=== PATIENT | male | born 1940 | race Two or more races ===

== ENCOUNTER 2021-01-22 01:56 | Inpatient (IN) | payer SELFPAY ==
[~2021-01-22] VITALS: Ht 170.2 cm; Wt 83.7 kg
[2021-01-22] VITALS (21 sets, daily range): BP systolic 109–148; BP diastolic 67–94
--- NOTE | 2021-01-22 02:00 | PHYS DOC ---
Past Medical History Past Medical History: CVA, Diabetes-Type II, High Cholesterol, Hypertension, Stroke Past Medical History Subdural hemorrhage Syncope Memory loss Falls Smoking Status: Never Smoker Alcohol Use: None Drug Use: None General Adult EDM: Chief Complaint: ABDOMINAL PAIN HPI: HPI: Patient is a 80 year old male who presents via EMS from home with report of epigastric and periumbilical abdominal pain which began 2 nights ago. He reports pain usually occurs after eating. The pain is nonradiating. He reports one episode of nausea without vomiting. He denies anorexia. He denies chest pain or dyspnea. He denies lower abdominal pain. He denies urinary symptoms. He denies constipation or diarrhea. He denies fevers or chills. No previous abdominal surgeries. He lives here with his daughter, but he normally resides in [facility]. He speaks no Grenadian. He denies any previous similar symptoms. He reports that his pain is actually improved today, and shortly after arrival, he reports that his pain is resolved. He continues to adamantly deny any chest pain. Review of Systems: Review of Systems: Constitutional: Denies fever or chills. [] HENT: Denies nasal congestion or sore throat. [] Respiratory: Denies cough or shortness of breath. [] Cardiovascular: Denies chest pain or edema. [] GI: Reports abdominal pain, 1 episodes of nausea without vomiting, no current nausea. Denies constipation or diarrhea. : Denies urinary symptoms. Musculoskeletal: Denies back pain or joint pain. [] Integument: Denies rash. [] Neurologic: Denies headache, focal weakness or sensory changes. [] Psychiatric: Denies depression or anxiety. [] Heart Score: C/O Chest Pain: No Risk Factors: Risk Factors: DM, Current or recent (<one month) smoker, HTN, HLP, family history of CAD, obesity. Risk Scores: Score 0 - 3: 2.5% MACE over next 6 weeks - Discharge Home Score 4 - 6: 20.3% MACE over next 6 weeks - Admit for Clinical Observation Score 7 - 10: 72.7% MACE over next 6 weeks - Early Invasive Strategies Physical Exam: PE: Constitutional: Well developed, well nourished, no acute distress, non-toxic appearance. [] HENT: Normocephalic, atraumatic, oropharynx is patent and clear. Mucous membranes are moist. Eyes: Sclera are clear and anicteric. Neck: Normal range of motion, no tenderness, supple, no stridor. [] Cardiovascular:Heart rate regular rhythm, +2 radial and +2 dorsalis pedis pulses bilaterally. Lungs & Thorax: Bilateral breath sounds clear to auscultation [] Abdomen: Abdomen is obese, soft, nondistended, normal bowel sounds, minimal epigastric tenderness, no guarding, no rebound tenderness. No lower abdominal tenderness. No palpable masses organomegaly. No CVA tenderness. No flank or abdominal ecchymoses. No audible bruit, no pulsatile mass appreciated. Skin: Warm, dry, no erythema, no rash. No jaundice. Back: No tenderness, no CVA tenderness. [] Extremities: No tenderness, no cyanosis, no clubbing, ROM intact, no edema. [] Neurologic: He is awake, alert, conversant, moves all 4 extremities equally, no facial asymmetry, speech is fluent. Psychologic: Affect is flat. He is cooperative. EKG: EKG: EKG is interpreted at 27 Rhythm is sinus Rate is [address] elevation in the inferior leads, 2, 3, aVF. There is also some ST elevation in V3 and V4 and V5 and less than 1 V6. Q waves present in V1. Incomplete left bundle branch block. Occasional PVCs. Radiology/Procedures: Radiology/Procedures: IMAGING REPORT Signed PATIENT: ADRIANNA BHAKTA ACCOUNT: [id number] : 1940 LOCATION: ER AGE: 80 SEX: M EXAM STATUS: REG ER ORD. PHYSICIAN: NEVA GARRIDO DO REASON: abdominal pain PROCEDURE: CT ABDOMEN PELVIS WO CONTRAST Examination: CT of the abdomen pelvis without contrast HISTORY: History of abdominal pain COMPARISON: None TECHNIQUE: Axial CT images of abdomen pelvis were performed without contrast. Coronal and sagittal reformats are performed Exposure: One or more of the following individualized dose reduction techniques were utilized for this examination: 1. Automated exposure control 2. Adjustment of the mA and/or kV according to patient size 3. Use of iterative reconstruction technique FINDINGS: Mild bibasilar lung atelectasis. No evidence of free air identified in the abdomen. The evaluation of the solid organs is limited due to lack of IV contrast. The evaluation of bowel is limited due to lack of oral contrast. The visualized noncontrasted liver, spleen, adrenals grossly appears unremarkable. The stomach is mildly distended. The visualized pancreas grossly appears unremarkable. The gallbladder is mildly distended The small bowel is nondilated. Feces and gas throughout the colon. Minimal fat stranding identified about the kidneys. Scattered diverticulosis colon. Urinary bladder is mildly distended. Moderate enlarged prostate gland. Moderate degenerative changes thoracal lumbar spine. IMPRESSION: 1. Minimal fat stranding identified about the kidneys could be due to medical renal disease or pyelonephritis. Correlate with lab values. 2. Moderate enlarged prostate gland. Electronically signed by: Jaycob Masters MD (01/22/2021 4:14 AM) [id number] DICTATED and SIGNED BY: JAYCOB MASTERS MD DATE: 01/22/21 [id number] 0 Course & Med Decision Making: Course & Med Decision Making Pertinent Labs and Imaging studies reviewed. (See chart for details) The patient had one episode of nausea, but this resolved within seconds. No vomiting. His pain is resolved. He has been sleeping, soundly, resting comfortably throughout his ED stay. EKG is markedly abnormal and does demonstrate STEMI pattern. I discussed this with on-call STEMI aluminum welder, Dr. Mcginnis. He reviewed the EKG, and I discussed the clinical findings and the patient's symptomatology with him. He agrees to treat the patient medically, and he will see him later this morning and will discuss cardiac catheterization later possibly. The patient is denying pain. He continues to deny chest pain. He is resting comfortably. His vital signs are stable. I have discussed all of the findings, differential diagnosis and plan of care with the patient as well as with his family. I discussed the plan for admission to the hospital. P.o. aspirin and heparin drip are initiated. The patient will be admitted to the hospitalist service, accepted by Dr. Saba. Jenna Disclaimer: Jenna Disclaimer: This electronic medical record was generated, in whole or in part, using a voice recognition dictation system. Departure Departure Impression: Primary Impression: ACS (acute coronary syndrome) Disposition: ADMITTED INPATIENT Admitting Physician: AUTUMN Condition: GUARDED HEMA,NEVA Eli DO Jan 22, 2021 02:00
[2021-01-22] MEDS ORDERED: fentaNYL PF VIAL 100 MCG/2 ML VIAL IVP ONE (02:15)
[2021-01-22] MEDS ORDERED: IV NORMAL SALINE 1000ML BAG 1,000 ML IV ONE ×2 (02:15→04:30)
[2021-01-22 02:24] LABS: BASO # 0.1 x10^3/uL (0.0-0.2); BASO % 1 % (0-3); EOS # 0.3 x10^3/uL (0.0-0.7); EOS % 2 % (0-3); HEMATOCRIT 38.1 % (39.0-53.0); HEMOGLOBIN 12.6 g/dL (13.0-17.5); LYMPH # 5.1 x10^3/uL (1.0-4.8); LYMPH % 39 % (24-48); MEAN CORPUSCULAR HEMOGLOBIN 28 pg (25-35); MEAN CORPUSCULAR HGB CONC 33 g/dL (31-37); MEAN CORPUSCULAR VOLUME 85 fL (79-100); MONO # 1.2 x10^3/uL (0.0-1.1); MONO % 9 % (0-9); NEUT # 6.3 x10^3/uL (1.8-7.7); NEUT % 48 % (31-73); PLATELET COUNT 365 x10^3/uL (140-400); RED BLOOD COUNT 4.49 x10^6/uL (4.30-5.70); RED CELL DISTRIBUTION WIDTH 13.1 % (11.5-14.5); WHITE BLOOD COUNT 13.1 x10^3/uL (4.0-11.0)
[2021-01-22 02:45] LABS: ALBUMIN 2.9 g/dL (3.4-5.0); ALBUMIN/GLOBULIN RATIO 0.7 (1.0-1.7); CALCIUM 8.1 mg/dL (8.5-10.1); CREATININE 1.7 mg/dL (0.7-1.3); GFR 39.2; POTASSIUM 3.7 mmol/L (3.5-5.1); TOTAL BILIRUBIN 0.2 mg/dL (0.2-1.0); TOTAL PROTEIN 7.3 g/dL (6.4-8.2)
--- NOTE | 2021-01-22 02:52 | EKG ---
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
[2021-01-22] MEDS ORDERED: ONDANSETRON PF 4 MG/2 ML VIAL. IVP ONE (03:15)
[2021-01-22] MEDS ORDERED: ASPIRIN CHEWABLE 81 MG TABLET. PO ONE ×2 (03:30→12:45)
[2021-01-22] MEDS: HEPARIN 25,000UTS/250ML PREMIX 250 ML IV PRN (04:08)
--- NOTE | 2021-01-22 04:17 | RAD ---
Examination: CT of the abdomen pelvis without contrast HISTORY: History of abdominal pain COMPARISON: None TECHNIQUE: Axial CT images of abdomen pelvis were performed without contrast. Coronal and sagittal re formats are performed Exposure: One or more of the following individualized dose reduction techniques were utilized for thi s examination: 1. Automated exposure control 2. Adjustment of the mA and/or kV according to patient size 3. Use of iterative reconstruction technique FINDINGS: Mild bibasilar lung atelectasis. No evidence of free air identified in the abdomen. The evaluation of the solid organs is limited due to lack of IV contrast. The evaluation of bowel is limited due to lack of oral contrast. The visualized noncontrasted liver, spleen, adrenals grossly ap pears unremarkable. The stomach is mildly distended. The visualized pancreas grossly appears unremark able. The gallbladder is mildly distended The small bowel is nondilated. Feces and gas throughout the colon. Minimal fat stranding identified a bout the kidneys. Scattered diverticulosis colon. Urinary bladder is mildly distended. Moderate enlarged prostate gland. Moderate degenerative changes thoracal lumbar spine. IMPRESSION: 1. Minimal fat stranding identified about the kidneys could be due to medical renal disease or pyelo nephritis. Correlate with lab values. 2. Moderate enlarged prostate gland. Electronically signed by: Jaycob Masters MD (01/22/2021 4:14 AM) [id number]
[2021-01-22] MEDS ORDERED: ONDANSETRON PF 4 MG/2 ML VIAL. IVP PRN ×2 (04:30→07:00)
[2021-01-22] MEDS ORDERED: fentaNYL PF VIAL 100 MCG/2 ML VIAL IVP PRN (04:30)
--- NOTE | 2021-01-22 05:08 | RAD ---
EXAM: CHEST 1 VIEW History: Chest pain COMPARISON: None available. TECHNIQUE: Single portable radiograph of the chest FINDINGS: The cardiac silhouette is unremarkable. Faint airspace opacities bilateral lungs likely at electasis or infiltrates. The costophrenic sulci are clear and well demarcated. IMPRESSION: Faint airspace opacities bilateral lungs likely atelectasis or infiltrates. Electronically signed by: Jaycob Masters MD (01/22/2021 5:05 AM) [id number]
--- NOTE | 2021-01-22 05:30 | NUR ---
Patient admitted to room 110 via cart from ED accompanied by RN. Patient is alert/oriented x4, denies pain and states he does not speak Bengali, but he does follow commands. Patient attached to ICU monitoring equipment (tele monitor, NIBP and oxygen sat probe), oriented to ICU routine, nursing call light, Bed/TV control, diet (NPO), activity (BR), Numeric pain scale, and POC. Patient unable to verbalized understanding and translation telephone not working to assistin explanation. Admission information obtained from ED records and records patient brought from previous hospitalization in another hospital. Admission info was not completed, will notify day shift RN to complete when family available.
--- NOTE | 2021-01-22 06:17 | PDOC1 ---
History and Physical Date of Admission Date of Admission DATE: 01/22/21 TIME: 06:11 Identification/Chief Complaint Chief Complaint Abdominal pain Source Source: Chart review, Patient History of Present Illness History of Present Illness Patient is a 80-year-old Georgian-speaking male with a total history CVA, DM2, HTN, HLD, who presents to the ED with complaints of epigastric abdominal pain for the past 2 days. He reports nonradiating pain, with associated nausea. He denies any vomiting or chest pain. Labs on admission showed WBC 13.1, hemoglobin 12.6, hematocrit 30.1, BUN 28, creatinine 1.7, CBG 3-17, lactic acid 2.6, albumin 2.9, high-sensitivity troponin 2518. EKG concerning for ST elevations in lead III and aVF. Case was discussed with on-call batch plant operator Dr. Mcginnis who believes an EKG resembles more NSTEMI pattern, and agrees to to treat the patient medically with a heparin drip. Patient was admitted for further medical management. Past Medical History Past Medical History CVA CHF, DM2, HTN, HLD, memory problems Past Surgical History Past Surgical History: No pertinent history Family History Family History: Hypertension Social History Smoke: No ALCOHOL: none Drugs: None Current Medications Current Medications Current Medications Sodium Chloride 1,000 ml @ 1,000 mls/hr 1X ONCE IV Last administered on 01/22/21at 02:49; Start 01/22/21 at 02:15; Stop 01/22/21 at 03:14; Status DC Fentanyl Citrate (Fentanyl 2ml Vial) 50 mcg 1X ONCE IVP Last administered on 01/22/21at 02:48; Start 01/22/21 at 02:15; Stop 01/22/21 at 02:23; Status DC Ondansetron HCl (Zofran) 4 mg 1X ONCE IVP Last administered on 01/22/21at 03:42; Start 01/22/21 at 03:15; Stop 01/22/21 at 03:16; Status DC Aspirin (Aspirin Chewable) 324 mg 1X ONCE PO Last administered on 01/22/21at 03:42; Start 01/22/21 at 03:30; Stop 01/22/21 at 03:31; Status DC Heparin Sodium/ Dextrose 250 ml @ 14.4 mls/hr CONT PRN IV SEE I/O RECORD Last administered on 01/22/21at 04:08; Start 01/22/21 at 03:30 Ondansetron HCl (Zofran) 4 mg PRN Q8HRS PRN IVP NAUSEA/VOMITING; Start 01/22/21 at 04:30; Stop 01/23/21 at 04:29 Fentanyl Citrate (Fentanyl 2ml Vial) 50 mcg PRN Q2HR PRN IVP pain; Start 01/22/21 at 04:30 Sodium Chloride 1,000 ml @ 75 mls/hr 1X ONCE IV ; Start 01/22/21 at 04:30; Stop 01/22/21 at 17:49 Allergies Allergies: Coded Allergies: No Known Drug Allergies (Unverified , 01/22/21) ROS Review of System GENERAL: No history of weight change, weakness or fevers. SKIN: No bruising, hair changes or rashes. EYES: No blurred, double or loss of vision. NOSE AND THROAT: No history of nosebleeds, hoarseness or sore throat. HEART: Denies chest pain, denies palpitations. LUNGS: Denies cough, hemoptysis, wheezing or shortness of breath. GASTROINTESTINAL: Abdominal pain, nausea. Denies vomiting. GENITOURINARY: Denies dysuria, frequency, urgency, hematuria. NEUROLOGIC: Denies history of numbness, tingling, tremor or weakness. PSYCHIATRIC: Denies anxiety, denies depression. ENDOCRINE: No history of heat or cold intolerance, polyuria or polydipsia. EXTREMITIES: Denies muscle weakness, joint pain, pain on walking or stiffness. Physical Exam Physical Exam General: Alert, Oriented X3, Cooperative, No acute distress HEENT: PERRLA, EOMI Lungs: Clear to auscultation, Normal air movement Heart: RRR, no murmurs Cardiovascular: S1, S2 Abdomen: Normal bowel sounds, Soft, No tenderness Extremities: +1 bilateral lower extremity edema. No clubbing, No cyanosis Skin: No rashes, No significant lesion Neuro: Normal speech, Normal tone, Sensation intact Psych/Mental Status: Mental status NL, Mood NL Vitals Vitals Vital Signs Date Time Temp Pulse Resp B/P (MAP) Pulse Ox O2 Delivery O2 Flow Rate FiO2 01/22/21 04:31 78 116/68 (84) 96 Room Air 01/22/21 02:48 20 01/22/21 02:21 98.0 98.0 Labs Labs Laboratory Tests Test 01/22/21 02:15 01/22/21 04:11 White Blood Count 13.1 x10^3/uL (4.0-11.0) Red Blood Count 4.49 x10^6/uL (4.30-5.70) Hemoglobin 12.6 g/dL (13.0-17.5) Hematocrit 38.1 % (39.0-53.0) Mean Corpuscular Volume 85 fL (79-100) Mean Corpuscular Hemoglobin 28 pg (25-35) Mean Corpuscular Hemoglobin Concent 33 g/dL (31-37) Red Cell Distribution Width 13.1 % (11.5-14.5) Platelet Count 365 x10^3/uL (140-400) Neutrophils (%) (Auto) 48 % (31-73) Lymphocytes (%) (Auto) 39 % (24-48) Monocytes (%) (Auto) 9 % (0-9) Eosinophils (%) (Auto) 2 % (0-3) Basophils (%) (Auto) 1 % (0-3) Neutrophils # (Auto) 6.3 x10^3/uL (1.8-7.7) Lymphocytes # (Auto) 5.1 x10^3/uL (1.0-4.8) Monocytes # (Auto) 1.2 x10^3/uL (0.0-1.1) Eosinophils # (Auto) 0.3 x10^3/uL (0.0-0.7) Basophils # (Auto) 0.1 x10^3/uL (0.0-0.2) Activated Partial Thromboplast Time 34 SEC (24-38) Sodium Level 138 mmol/L (136-145) Potassium Level 3.7 mmol/L (3.5-5.1) Chloride Level 100 mmol/L (98-107) Carbon Dioxide Level 28 mmol/L (21-32) Anion Gap 10 (6-14) Blood Urea Nitrogen 28 mg/dL (8-26) Creatinine 1.7 mg/dL (0.7-1.3) Estimated GFR (Cockcroft-Gault) 39.2 BUN/Creatinine Ratio 16 (6-20) Glucose Level 370 mg/dL (70-99) Lactic Acid Level 2.6 mmol/L (0.4-2.0) Calcium Level 8.1 mg/dL (8.5-10.1) Magnesium Level 2.0 mg/dL (1.8-2.4) Total Bilirubin 0.2 mg/dL (0.2-1.0) Aspartate Amino Transf (AST/SGOT) 17 U/L (15-37) Alanine Aminotransferase (ALT/SGPT) 27 U/L (16-63) Alkaline Phosphatase 85 U/L (46-116) Troponin I High Sensitivity 2518 ng/L (4-75) Total Protein 7.3 g/dL (6.4-8.2) Albumin 2.9 g/dL (3.4-5.0) Albumin/Globulin Ratio 0.7 (1.0-1.7) Lipase 243 U/L (73-393) SARS-CoV-2 Antigen (Rapid) Negative (NEGATIVE) Laboratory Tests Test 01/22/21 02:15 01/22/21 04:11 White Blood Count 13.1 x10^3/uL (4.0-11.0) Red Blood Count 4.49 x10^6/uL (4.30-5.70) Hemoglobin 12.6 g/dL (13.0-17.5) Hematocrit 38.1 % (39.0-53.0) Mean Corpuscular Volume 85 fL (79-100) Mean Corpuscular Hemoglobin 28 pg (25-35) Mean Corpuscular Hemoglobin Concent 33 g/dL (31-37) Red Cell Distribution Width 13.1 % (11.5-14.5) Platelet Count 365 x10^3/uL (140-400) Neutrophils (%) (Auto) 48 % (31-73) Lymphocytes (%) (Auto) 39 % (24-48) Monocytes (%) (Auto) 9 % (0-9) Eosinophils (%) (Auto) 2 % (0-3) Basophils (%) (Auto) 1 % (0-3) Neutrophils # (Auto) 6.3 x10^3/uL (1.8-7.7) Lymphocytes # (Auto) 5.1 x10^3/uL (1.0-4.8) Monocytes # (Auto) 1.2 x10^3/uL (0.0-1.1) Eosinophils # (Auto) 0.3 x10^3/uL (0.0-0.7) Basophils # (Auto) 0.1 x10^3/uL (0.0-0.2) Activated Partial Thromboplast Time 34 SEC (24-38) Sodium Level 138 mmol/L (136-145) Potassium Level 3.7 mmol/L (3.5-5.1) Chloride Level 100 mmol/L (98-107) Carbon Dioxide Level 28 mmol/L (21-32) Anion Gap 10 (6-14) Blood Urea Nitrogen 28 mg/dL (8-26) Creatinine 1.7 mg/dL (0.7-1.3) Estimated GFR (Cockcroft-Gault) 39.2 BUN/Creatinine Ratio 16 (6-20) Glucose Level 370 mg/dL (70-99) Lactic Acid Level 2.6 mmol/L (0.4-2.0) Calcium Level 8.1 mg/dL (8.5-10.1) Magnesium Level 2.0 mg/dL (1.8-2.4) Total Bilirubin 0.2 mg/dL (0.2-1.0) Aspartate Amino Transf (AST/SGOT) 17 U/L (15-37) Alanine Aminotransferase (ALT/SGPT) 27 U/L (16-63) Alkaline Phosphatase 85 U/L (46-116) Troponin I High Sensitivity 2518 ng/L (4-75) Total Protein 7.3 g/dL (6.4-8.2) Albumin 2.9 g/dL (3.4-5.0) Albumin/Globulin Ratio 0.7 (1.0-1.7) Lipase 243 U/L (73-393) SARS-CoV-2 Antigen (Rapid) Negative (NEGATIVE) Images Images [facility] [address] [place] [address] IMAGING REPORT Signed PATIENT: ADRIANNA BHAKTA ACCOUNT: [id number] : 1940 LOCATION: [address] [place] [address] AGE: 80 SEX: M EXAM STATUS: ADM IN ORD. PHYSICIAN: NEVA GARRIDO DO REASON: pain PROCEDURE: PORTABLE CHEST 1V EXAM: CHEST 1 VIEW History: Chest pain COMPARISON: None available. TECHNIQUE: Single portable radiograph of the chest FINDINGS: The cardiac silhouette is unremarkable. Faint airspace opacities bilateral lungs likely atelectasis or infiltrates. The costophrenic sulci are clear and well demarcated. IMPRESSION: Faint airspace opacities bilateral lungs likely atelectasis or infiltrates. IMAGING REPORT Signed PATIENT: ADRIANNA BHAKTA ACCOUNT: [id number] : 1940 LOCATION: ER AGE: 80 SEX: M EXAM STATUS: REG ER ORD. PHYSICIAN: NEVA GARRIDO DO REASON: abdominal pain PROCEDURE: CT ABDOMEN PELVIS WO CONTRAST Examination: CT of the abdomen pelvis without contrast HISTORY: History of abdominal pain COMPARISON: None TECHNIQUE: Axial CT images of abdomen pelvis were performed without contrast. Coronal and sagittal reformats are performed Exposure: One or more of the following individualized dose reduction techniques were utilized for this examination: 1. Automated exposure control 2. Adjustment of the mA and/or kV according to patient size 3. Use of iterative reconstruction technique FINDINGS: Mild bibasilar lung atelectasis. No evidence of free air identified in the abdomen. The evaluation of the solid organs is limited due to lack of IV contrast. The evaluation of bowel is limited due to lack of oral contrast. The visualized noncontrasted liver, spleen, adrenals grossly appears unremarkable. The stomach is mildly distended. The visualized pancreas grossly appears unremarkable. The gallbladder is mildly distended The small bowel is nondilated. Feces and gas throughout the colon. Minimal fat stranding identified about the kidneys. Scattered diverticulosis colon. Urinary bladder is mildly distended. Moderate enlarged prostate gland. Moderate degenerative changes thoracal lumbar spine. IMPRESSION: 1. Minimal fat stranding identified about the kidneys could be due to medical renal disease or pyelonephritis. Correlate with lab values. 2. Moderate enlarged prostate gland. VTE Prophylaxis Ordered VTE Prophylaxis Devices: No VTE Pharmacological Prophylaxi: Yes Assessment/Plan Assessment/Plan NSTEMI DM2 with hyperglycemia HTN HLD History CVA Plan: We'll admit patient on telemetry with heparin drip Consult to cardiology Continue heparin gtt Continue to trend troponins Echocardiogram pending Resume home medications FEN - Cardiac diet PPX - Heparin FULL CODE Dispo - inpatient for above Surrogate decision-maker is son-in-law (Joe Ma). Justifications for Admission Other Justification MARLENY LUEVANO MD Jan 22, 2021 06:17
--- NOTE | 2021-01-22 06:29 | EKG ---
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
[2021-01-22] MEDS ORDERED: LISI40TA6 PO (06:44)
[2021-01-22] MEDS ORDERED: CHLO25TA10 PO (06:44)
[2021-01-22] MEDS ORDERED: POTA20TA4 PO (06:44)
[2021-01-22] MEDS ORDERED: AMLO-187 PO (06:44)
[2021-01-22] MEDS ORDERED: HYDR-2868 PO (06:44)
[2021-01-22] MEDS ORDERED: ATOR40TA PO (06:44)
[2021-01-22] MEDS ORDERED: HYDR-2759 PO (06:55)
[2021-01-22] MEDS ORDERED: INSU100V6 SQ (06:55)
[2021-01-22] MEDS ORDERED: GUAI600T47 PO (06:55)
[2021-01-22] MEDS ORDERED: INSU100V8 SQ (06:55)
[2021-01-22] MEDS ORDERED: CARV12.5 PO (06:55)
[2021-01-22] MEDS ORDERED: MECL12.582 PO (06:55)
[2021-01-22] MEDS ORDERED: MAGNESIUM HYDROXIDE 2,400 MG/30 ML ORAL.SUSP. PO PRN (07:00)
[2021-01-22] MEDS ORDERED: ACETAMINOPHEN 325 MG TABLET. PO PRN (07:00)
[2021-01-22] MEDS ORDERED: HYDROcodone/APAP 5/325MG 1 TAB TABLET PO PRN (07:00)
[2021-01-22] MEDS ORDERED: 0.9 % SODIUM CHLORIDE 10 ML DISP.SYRIN. IV PRN (07:00)
[2021-01-22] MEDS ORDERED: DEXTROSE 50% 25 GM / 50ML DISP.SYRIN. IV PRN (07:00)
[2021-01-22] MEDS ORDERED: ZOLPIDEM 5 MG TABLET. PO PRN (07:00)
[2021-01-22] MEDS ORDERED: MAG HYDROX/ALUMINUM HYD/SIMETH 30 ML ORAL.SUSP PO PRN (07:00)
--- NOTE | 2021-01-22 07:25 | NUR ---
Repeat Troponin at 0610 resulted 21,139, increased from 2518 drawn at 0215, Dr Mcginnis pagesaran. Dr Mcginnis returned page, notified of increased Troponin and patient continues to be pain free with Heparin gtt infusing at 12UNITS/KG/HR and repeat UFH ordered for 1000. No new orders at this time.
[2021-01-22] MEDS: INSULIN LISPRO 300 UNITS/3 ML VIAL. SQ SCH ×3 (08:00→17:50)
[2021-01-22 08:58] LABS: BILIRUBIN,URINE NEGATIVE (NEG); CLARITY,URINE CLOUDY; COLOR,URINE YELLOW; NITRITE,URINE NEGATIVE (NEG); PH,URINE 5.5 (<5.0-8.0); PROTEIN,URINE >=300 mg/dL (NEG-TRACE); UROBILINOGEN,URINE 0.2 mg/dL (0.2 mg/dL)
[2021-01-22 09:09] LABS: BACTERIA,URINE MANY /HPF (0-FEW); HYALINE CASTS, URINE FEW /HPF; WBC,URINE 20-40 /HPF (0-4)
--- NOTE | 2021-01-22 12:37 | PDOC2 ---
CONSULT Date of Consult Date of Consult DATE: 01/22/21 TIME: 12:25 Reason for Consult Reason for Consult: ACS /myocardial infarction. Referring Physician Referring Physician: Dr. Fuentes Identification/Chief Complaint Chief Complaint Abdominal pain Source Source: Caregiver, Chart review, Patient History of Present Illness Reason for Visit: The patient is a 80-year-old Swedish-speaking male who was admitted through the emergency room early this morning secondary to episodes of abdominal pain. The pain had been occasionally present over several days and he came to the emergency room due to an increase in pain. He denied any chest pain or shortness of breath. His abdominal pain resolved shortly after his arrival in the emergency room. His work-up included an EKG that showed a sinus rhythm with ST elevation in the inferior leads and V3 through V5. Chest x-ray did show slight airspace opacities. CT scan of the abdomen showed no acute changes. Initial troponin was 2518. The patient was started on heparin and admitted to the ICU. Later this morning on review of the patient he remained pain-free and comfortable. His rhythm has remained stable overnight. Vital signs have been stable. However his troponins increased to greater than 21,000. In this setting we were able to contact the patient's son-in-law Mr. Ma earlier this morning. Via use of a telephone optometry assistant we discussed the patient's clinical course overnight and his status this morning. We discussed the options of cardiac catheterization with possible intervention versus continued medical treatment. The patient's family decided to continue on medical treatment at this time. Past Medical History Cardiovascular: HTN, Hyperlipidemia CENTRAL NERVOUS SYSTEM: CVA, Other (Possible subdural hematoma) Endocrine: Diabetes Past Surgical History Past Surgical History: No pertinent history Family History Family History: Hypertension Social History No ALCOHOL: none Drugs: None Current Medications Current Medications Current Medications Sodium Chloride 1,000 ml @ 1,000 mls/hr 1X ONCE IV Last administered on 01/22/21at 02:49; Start 01/22/21 at 02:15; Stop 01/22/21 at 03:14; Status DC Fentanyl Citrate (Fentanyl 2ml Vial) 50 mcg 1X ONCE IVP Last administered on 01/22/21at 02:48; Start 01/22/21 at 02:15; Stop 01/22/21 at 02:23; Status DC Ondansetron HCl (Zofran) 4 mg 1X ONCE IVP Last administered on 01/22/21at 03:42; Start 01/22/21 at 03:15; Stop 01/22/21 at 03:16; Status DC Aspirin (Aspirin Chewable) 324 mg 1X ONCE PO Last administered on 01/22/21at 03:42; Start 01/22/21 at 03:30; Stop 01/22/21 at 03:31; Status DC Heparin Sodium/ Dextrose 250 ml @ 14.4 mls/hr CONT PRN IV SEE I/O RECORD Last administered on 01/22/21at 04:08; Start 01/22/21 at 03:30 Ondansetron HCl (Zofran) 4 mg PRN Q8HRS PRN IVP NAUSEA/VOMITING; Start 01/22/21 at 04:30; Stop 01/23/21 at 04:29 Fentanyl Citrate (Fentanyl 2ml Vial) 50 mcg PRN Q2HR PRN IVP pain; Start 01/22/21 at 04:30 Sodium Chloride 1,000 ml @ 75 mls/hr 1X ONCE IV ; Start 01/22/21 at 04:30; Stop 01/22/21 at 17:49 Acetaminophen (Tylenol) 650 mg PRN Q6HRS PRN PO Headaches, Temp > 101.5'; Start 01/22/21 at 07:00 Lorazepam (Ativan Inj) 0.5 mg PRN Q6HRS PRN IVP ANXIETY / AGITATION; Start 01/22/21 at 07:00 Lorazepam (Ativan) 1 mg PRN Q6HRS PRN PO ANXIETY / AGITATION; Start 01/22/21 at 07:00 Ondansetron HCl (Zofran) 4 mg PRN Q6HRS PRN IVP NAUSEA/VOMITING; Start 01/22/21 at 07:00 Al Hydroxide/Mg Hydroxide (Mylanta Plus Xs) 30 ml PRN Q3HRS PRN PO HEARTBURN / GAS; Start 01/22/21 at 07:00 Zolpidem Tartrate (Ambien) 5 mg PRN QHS PRN PO INSOMNIA, MAY REPEAT IN 1HR; Start 01/22/21 at 07:00 Sodium Chloride (Normal Saline Flush) 3 ml QSHIFT PRN IV AFTER MEDS AND BLOOD DRAWS; Start 01/22/21 at 07:00 Acetaminophen/ Hydrocodone Bitart (Lortab 5/325) 1 tab PRN Q4HRS PRN PO PAIN; Start 01/22/21 at 07:00 Magnesium Hydroxide (Milk Of Magnesia) 2,400 mg PRN Q12HR PRN PO CONSTIPATION; Start 01/22/21 at 07:00 Insulin Glargine (Lantus Syringe) 50 unit QHS SQ ; Start 01/22/21 at 21:00 Insulin Human Lispro (HumaLOG) 5 units TIDWMEALS SQ ; Start 01/22/21 at 08:00 Dextrose (Dextrose 50%-Water Syringe) 12.5 gm PRN Q15MIN PRN IV SEE COMMENTS; Start 01/22/21 at 07:00 Active Scripts Active Reported Meclizine Hcl 12.5 Mg Tablet 1 Tab PO BID Humalog (Insulin Lispro) 100 Unit/1 Ml Vial 5 Unit SQ TIDAC Lantus (Insulin Glargine,Hum.rec.anlog) 100 Unit/1 Ml Vial 50 Unit SQ QHS Hydrocodone-Acetamin 5-325 mg (Hydrocodone/Acetaminophen) 1 Each Tablet 1 Each PO PRN Q6HRS PRN Mucinex (Guaifenesin) 600 Mg Tablet.er 1 Tab PO BID 10 Days Coreg (Carvedilol) 12.5 Mg Tablet 12.5 Mg PO BIDWMEALS Chlorthalidone (Chlorthalidone) 25 Mg Tablet 25 Mg PO DAILY Potassium Chloride (Potassium Chloride) 20 Meq Tablet.er 20 Meq PO DAILY Lipitor (Atorvastatin Calcium) 40 Mg Tablet 1 Tab PO DAILY Amlodipine Besylate 10 Mg Tablet 10 Mg PO DAILY Lisinopril 40 Mg Tablet 40 Mg PO DAILY Hydralazine Hcl 25 Mg Tablet 25 Mg PO Q8HRS Allergies Allergies: Coded Allergies: No Known Drug Allergies (Unverified , 01/22/21) ROS General: YES: Fatigue Gastrointestinal: Yes Abdominal Pain Physical Exam General: No acute distress HEENT: Atraumatic Lungs: Clear to auscultation Heart: Regular rate Abdomen: Soft Vitals VITALS Vital Signs Date Time Temp Pulse Resp B/P (MAP) Pulse Ox O2 Delivery O2 Flow Rate FiO2 01/22/21 11:00 72 17 138/90 (106) 97 Room Air 01/22/21 08:00 97.4 97.4 Labs Labs Laboratory Tests Test 01/22/21 02:15 01/22/21 04:11 01/22/21 06:10 01/22/21 08:37 White Blood Count 13.1 x10^3/uL (4.0-11.0) Red Blood Count 4.49 x10^6/uL (4.30-5.70) Hemoglobin 12.6 g/dL (13.0-17.5) Hematocrit 38.1 % (39.0-53.0) Mean Corpuscular Volume 85 fL (79-100) Mean Corpuscular Hemoglobin 28 pg (25-35) Mean Corpuscular Hemoglobin Concent 33 g/dL (31-37) Red Cell Distribution Width 13.1 % (11.5-14.5) Platelet Count 365 x10^3/uL (140-400) Neutrophils (%) (Auto) 48 % (31-73) Lymphocytes (%) (Auto) 39 % (24-48) Monocytes (%) (Auto) 9 % (0-9) Eosinophils (%) (Auto) 2 % (0-3) Basophils (%) (Auto) 1 % (0-3) Neutrophils # (Auto) 6.3 x10^3/uL (1.8-7.7) Lymphocytes # (Auto) 5.1 x10^3/uL (1.0-4.8) Monocytes # (Auto) 1.2 x10^3/uL (0.0-1.1) Eosinophils # (Auto) 0.3 x10^3/uL (0.0-0.7) Basophils # (Auto) 0.1 x10^3/uL (0.0-0.2) Activated Partial Thromboplast Time 34 SEC (24-38) Sodium Level 138 mmol/L (136-145) Potassium Level 3.7 mmol/L (3.5-5.1) Chloride Level 100 mmol/L (98-107) Carbon Dioxide Level 28 mmol/L (21-32) Anion Gap 10 (6-14) Blood Urea Nitrogen 28 mg/dL (8-26) Creatinine 1.7 mg/dL (0.7-1.3) Estimated GFR (Cockcroft-Gault) 39.2 BUN/Creatinine Ratio 16 (6-20) Glucose Level 370 mg/dL (70-99) Lactic Acid Level 2.6 mmol/L (0.4-2.0) 2.1 mmol/L (0.4-2.0) Calcium Level 8.1 mg/dL (8.5-10.1) Magnesium Level 2.0 mg/dL (1.8-2.4) Total Bilirubin 0.2 mg/dL (0.2-1.0) Aspartate Amino Transf (AST/SGOT) 17 U/L (15-37) Alanine Aminotransferase (ALT/SGPT) 27 U/L (16-63) Alkaline Phosphatase 85 U/L (46-116) Troponin I High Sensitivity 2518 ng/L (4-75) 46335 ng/L (4-75) Total Protein 7.3 g/dL (6.4-8.2) Albumin 2.9 g/dL (3.4-5.0) Albumin/Globulin Ratio 0.7 (1.0-1.7) Lipase 243 U/L (73-393) SARS-CoV-2 Antigen (Rapid) Negative (NEGATIVE) Urine Collection Type Unknown Urine Color Yellow Urine Clarity Cloudy Urine pH 5.5 (<5.0-8.0) Urine Specific [place] 1.025 (1.000-1.030) Urine Protein >=300 mg/dL (NEG-TRACE) Urine Glucose (UA) >=1000 mg/dL (NEG) Urine Ketones (Stick) Negative mg/dL (NEG) Urine Blood Moderate (NEG) Urine Nitrite Negative (NEG) Urine Bilirubin Negative (NEG) Urine Urobilinogen Dipstick 0.2 mg/dL (0.2 mg/dL) Urine Leukocyte Esterase Small (NEG) Urine RBC 3-5 /HPF (0-2) Urine WBC 20-40 /HPF (0-4) Urine Squamous Epithelial Cells Few /LPF Urine Bacteria Many /HPF (0-FEW) Urine Hyaline Casts Few /HPF Urine Mucus Slight /LPF Test 01/22/21 09:55 Heparin Anti-Xa Act, Unfractionated 0.18 IU/mL (0.30-0.70) Troponin I High Sensitivity > 93923 ng/L (4-75) Laboratory Tests Test 01/22/21 02:15 01/22/21 04:11 01/22/21 06:10 01/22/21 08:37 White Blood Count 13.1 x10^3/uL (4.0-11.0) Red Blood Count 4.49 x10^6/uL (4.30-5.70) Hemoglobin 12.6 g/dL (13.0-17.5) Hematocrit 38.1 % (39.0-53.0) Mean Corpuscular Volume 85 fL (79-100) Mean Corpuscular Hemoglobin 28 pg (25-35) Mean Corpuscular Hemoglobin Concent 33 g/dL (31-37) Red Cell Distribution Width 13.1 % (11.5-14.5) Platelet Count 365 x10^3/uL (140-400) Neutrophils (%) (Auto) 48 % (31-73) Lymphocytes (%) (Auto) 39 % (24-48) Monocytes (%) (Auto) 9 % (0-9) Eosinophils (%) (Auto) 2 % (0-3) Basophils (%) (Auto) 1 % (0-3) Neutrophils # (Auto) 6.3 x10^3/uL (1.8-7.7) Lymphocytes # (Auto) 5.1 x10^3/uL (1.0-4.8) Monocytes # (Auto) 1.2 x10^3/uL (0.0-1.1) Eosinophils # (Auto) 0.3 x10^3/uL (0.0-0.7) Basophils # (Auto) 0.1 x10^3/uL (0.0-0.2) Activated Partial Thromboplast Time 34 SEC (24-38) Sodium Level 138 mmol/L (136-145) Potassium Level 3.7 mmol/L (3.5-5.1) Chloride Level 100 mmol/L (98-107) Carbon Dioxide Level 28 mmol/L (21-32) Anion Gap 10 (6-14) Blood Urea Nitrogen 28 mg/dL (8-26) Creatinine 1.7 mg/dL (0.7-1.3) Estimated GFR (Cockcroft-Gault) 39.2 BUN/Creatinine Ratio 16 (6-20) Glucose Level 370 mg/dL (70-99) Lactic Acid Level 2.6 mmol/L (0.4-2.0) 2.1 mmol/L (0.4-2.0) Calcium Level 8.1 mg/dL (8.5-10.1) Magnesium Level 2.0 mg/dL (1.8-2.4) Total Bilirubin 0.2 mg/dL (0.2-1.0) Aspartate Amino Transf (AST/SGOT) 17 U/L (15-37) Alanine Aminotransferase (ALT/SGPT) 27 U/L (16-63) Alkaline Phosphatase 85 U/L (46-116) Troponin I High Sensitivity 2518 ng/L (4-75) 52378 ng/L (4-75) Total Protein 7.3 g/dL (6.4-8.2) Albumin 2.9 g/dL (3.4-5.0) Albumin/Globulin Ratio 0.7 (1.0-1.7) Lipase 243 U/L (73-393) SARS-CoV-2 Antigen (Rapid) Negative (NEGATIVE) Urine Collection Type Unknown Urine Color Yellow Urine Clarity Cloudy Urine pH 5.5 (<5.0-8.0) Urine Specific [place] 1.025 (1.000-1.030) Urine Protein >=300 mg/dL (NEG-TRACE) Urine Glucose (UA) >=1000 mg/dL (NEG) Urine Ketones (Stick) Negative mg/dL (NEG) Urine Blood Moderate (NEG) Urine Nitrite Negative (NEG) Urine Bilirubin Negative (NEG) Urine Urobilinogen Dipstick 0.2 mg/dL (0.2 mg/dL) Urine Leukocyte Esterase Small (NEG) Urine RBC 3-5 /HPF (0-2) Urine WBC 20-40 /HPF (0-4) Urine Squamous Epithelial Cells Few /LPF Urine Bacteria Many /HPF (0-FEW) Urine Hyaline Casts Few /HPF Urine Mucus Slight /LPF Test 01/22/21 09:55 Heparin Anti-Xa Act, Unfractionated 0.18 IU/mL (0.30-0.70) Troponin I High Sensitivity > 77640 ng/L (4-75) Images Images Chest x-ray and CT abdomen as above Assessment/Plan Assessment/Plan 1. Acute coronary syndrome with atypical presentation of a myocardial infarction. Patient has remained chest pain-free. Rhythm and blood pressure has remained stable. EKG as above and increased troponin also as above. After discussion with the patient's family they have decided on medical treatment at this time. We will proceed with present treatment. Echocardiogram pending. We have scheduled another discussion with the patient's family tomorrow morning. 2. Abdominal pain. Improved. Continue present treatments and monitoring. 3. 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 4. Hyperlipidemia. Check lab and treat with statins if indicated. 5. History of borderline hypertension. Patient's blood pressure is controlled. We will continue present treatment. 6. Diabetes mellitus. Will monitor lab. CHRIS KNOTT MD Jan 22, 2021 12:37
[2021-01-22] MEDS: ATORVASTATIN CALCIUM 40 MG TABLET. PO SCH (20:48)
[2021-01-22] MEDS: METOPROLOL TART IMMED RELEASE 25 MG TABLET. PO SCH (20:49)
[2021-01-22] MEDS: INSULIN GLARGINE SYRINGE. SQ SCH (20:57)
[2021-01-23] VITALS (20 sets, daily range): BP systolic 99–137; BP diastolic 58–87
[2021-01-23] MEDS: HEPARIN 25,000UTS/250ML PREMIX 250 ML IV PRN ×2 (00:22→19:45)
[2021-01-23 05:31] LABS: BASO # 0.1 x10^3/uL (0.0-0.2); BASO % 1 % (0-3); EOS % 0 % (0-3); HEMATOCRIT 35.7 % (39.0-53.0); HEMOGLOBIN 11.5 g/dL (13.0-17.5); LYMPH # 2.8 x10^3/uL (1.0-4.8); LYMPH % 20 % (24-48); MEAN CORPUSCULAR HEMOGLOBIN 28 pg (25-35); MEAN CORPUSCULAR HGB CONC 32 g/dL (31-37); MEAN CORPUSCULAR VOLUME 86 fL (79-100); MONO # 1.3 x10^3/uL (0.0-1.1); MONO % 9 % (0-9); NEUT # 10.2 x10^3/uL (1.8-7.7); NEUT % 70 % (31-73); PLATELET COUNT 286 x10^3/uL (140-400); RED BLOOD COUNT 4.16 x10^6/uL (4.30-5.70); RED CELL DISTRIBUTION WIDTH 13.1 % (11.5-14.5); WHITE BLOOD COUNT 14.4 x10^3/uL (4.0-11.0)
[2021-01-23 06:11] LABS: CALCIUM 8.4 mg/dL (8.5-10.1); CREATININE 1.6 mg/dL (0.7-1.3); POTASSIUM 3.8 mmol/L (3.5-5.1)
[2021-01-23 06:14] LABS: CHOLESTEROL/HDL RATIO 4.6
--- NOTE | 2021-01-23 07:50 | PDOC ---
[employer] PROGRESS NOTE Date of Service DOS: DATE: 01/23/21 TIME: 07:41 Chief Complaint Chief Complaint NSTEMI DM2 with hyperglycemia HTN HLD History CVA Plan: We'll admit patient on telemetry with heparin drip Consult to cardiology Continue heparin gtt Continue to trend troponins Echocardiogram pending Resume home medications FEN - Cardiac diet PPX - Heparin FULL CODE Dispo - inpatient for above Surrogate decision-maker is son-in-law (Joe Ma). History of Present Illness History of Present Illness Patient is a 80-year-old Arabic-speaking male with a total history CVA, DM2, HTN, HLD, who presents to the ED with complaints of epigastric abdominal pain for the past 2 days. He reports nonradiating pain, with associated nausea. He denies any vomiting or chest pain. Labs on admission showed WBC 13.1, hemoglobin 12.6, hematocrit 30.1, BUN 28, creatinine 1.7, CBG 3-17, lactic acid 2.6, albu min 2.9, high-sensitivity troponin 2518. EKG concerning for ST elevations in lead III and aVF. Case was discussed with on-call account executive trainee Dr. Mcginnis who believes an EKG resembles more NSTEMI pattern, and agrees to to treat the patient medically with a heparin drip. Patient was admitted for further medical management. 01/23: Continue to deny chest pain. Family is opted for medical therapy at this time. Echocardiogram pending. Further discussion with family about treatment I believe today with cardiology. Continue heparin gtt. Vitals/I&O Vitals/I&O: Vital Signs Date Time Temp Pulse Resp B/P (MAP) Pulse Ox O2 Delivery O2 Flow Rate FiO2 01/23/21 07:00 69 22 109/58 (75) 96 Room Air 01/23/21 04:00 98.6 98.6 I & O 01/22/21 01/22/21 01/23/21 15:00 23:00 07:00 Intake Total 100 ml 926.2 ml 157.99 ml Output Total 450 ml 250 ml 190 ml Balance -350 ml 676.2 ml -32.01 ml Physical Exam General: Alert, No acute distress Heart: Regular rate Lungs: Clear Abdomen: Soft Extremities: No clubbing, No cyanosis Skin: No breakdown Labs Labs: Laboratory Tests Test 01/22/21 08:37 01/22/21 09:55 01/22/21 12:34 01/22/21 16:05 Urine Collection Type Unknown Urine Color Yellow Urine Clarity Cloudy Urine pH 5.5 (<5.0-8.0) Urine Specific [place] 1.025 (1.000-1.030) Urine Protein >=300 mg/dL (NEG-TRACE) Urine Glucose (UA) >=1000 mg/dL (NEG) Urine Ketones (Stick) Negative mg/dL (NEG) Urine Blood Moderate (NEG) Urine Nitrite Negative (NEG) Urine Bilirubin Negative (NEG) Urine Urobilinogen Dipstick 0.2 mg/dL (0.2 mg/dL) Urine Leukocyte Esterase Small (NEG) Urine RBC 3-5 /HPF (0-2) Urine WBC 20-40 /HPF (0-4) Urine Squamous Epithelial Cells Few /LPF Urine Bacteria Many /HPF (0-FEW) Urine Hyaline Casts Few /HPF Urine Mucus Slight /LPF Heparin Anti-Xa Act, Unfractionated 0.18 IU/mL (0.30-0.70) 0.29 IU/mL (0.30-0.70) Troponin I High Sensitivity > 33211 ng/L (4-75) Glucose (Fingerstick) 233 mg/dL (70-99) Test 01/22/21 17:40 01/22/21 21:45 01/23/21 04:30 Glucose (Fingerstick) 252 mg/dL (70-99) Heparin Anti-Xa Act, Unfractionated 0.47 IU/mL (0.30-0.70) 0.45 IU/mL (0.30-0.70) White Blood Count 14.4 x10^3/uL (4.0-11.0) Red Blood Count 4.16 x10^6/uL (4.30-5.70) Hemoglobin 11.5 g/dL (13.0-17.5) Hematocrit 35.7 % (39.0-53.0) Mean Corpuscular Volume 86 fL (79-100) Mean Corpuscular Hemoglobin 28 pg (25-35) Mean Corpuscular Hemoglobin Concent 32 g/dL (31-37) Red Cell Distribution Width 13.1 % (11.5-14.5) Platelet Count 286 x10^3/uL (140-400) Neutrophils (%) (Auto) 70 % (31-73) Lymphocytes (%) (Auto) 20 % (24-48) Monocytes (%) (Auto) 9 % (0-9) Eosinophils (%) (Auto) 0 % (0-3) Basophils (%) (Auto) 1 % (0-3) Neutrophils # (Auto) 10.2 x10^3/uL (1.8-7.7) Lymphocytes # (Auto) 2.8 x10^3/uL (1.0-4.8) Monocytes # (Auto) 1.3 x10^3/uL (0.0-1.1) Eosinophils # (Auto) 0.0 x10^3/uL (0.0-0.7) Basophils # (Auto) 0.1 x10^3/uL (0.0-0.2) Sodium Level 138 mmol/L (136-145) Potassium Level 3.8 mmol/L (3.5-5.1) Chloride Level 102 mmol/L (98-107) Carbon Dioxide Level 27 mmol/L (21-32) Anion Gap 9 (6-14) Blood Urea Nitrogen 28 mg/dL (8-26) Creatinine 1.6 mg/dL (0.7-1.3) Estimated GFR (Cockcroft-Gault) 42.0 Glucose Level 150 mg/dL (70-99) Calcium Level 8.4 mg/dL (8.5-10.1) Triglycerides Level 54 mg/dL (0-150) Cholesterol Level 155 mg/dL (0-200) LDL Cholesterol, Calculated 110 mg/dL (0-100) VLDL Cholesterol, Calculated 11 mg/dL (0-40) Non-HDL Cholesterol Calculated 121 mg/dL (0-129) HDL Cholesterol 34 mg/dL (40-60) Cholesterol/HDL Ratio 4.6 Comment Review of Relevant I have reviewed the following items rik (where applicable) has been applied. Medications: Current Medications Medications (Trade) Dose Ordered Sig/Cheng Route PRN Reason Start Time Stop Time Status Last Admin Dose Admin Insulin Glargine (Lantus Syringe) 50 unit QHS SQ 01/22/21 21:00 01/22/21 20:57 Insulin Human Lispro (HumaLOG) 5 units TIDWMEALS SQ 01/22/21 08:00 01/22/21 17:50 Aspirin (Aspirin Chewable) 324 mg DAILY ONCE PO 01/22/21 12:45 01/22/21 12:46 DC 01/22/21 13:03 Metoprolol Tartrate (Lopressor) 25 mg BID PO 01/22/21 21:00 01/22/21 20:49 Atorvastatin Calcium (Lipitor) 40 mg QHS PO 01/22/21 21:00 01/22/21 20:48 Justifications for Admission Other Justification MARLENY LUEVANO MD Jan 23, 2021 07:50
[2021-01-23] MEDS: INSULIN LISPRO 300 UNITS/3 ML VIAL. SQ SCH ×3 (09:30→17:00)
[2021-01-23] MEDS: METOPROLOL TART IMMED RELEASE 25 MG TABLET. PO SCH ×2 (09:38→20:42)
--- NOTE | 2021-01-23 16:17 | PDOC ---
PROGRESS NOTES Date of Service DATE: 01/23/21 TIME: 16:12 Subjective Subjective Patient seen and examined. The patient remains chest pain-free and denies shortness of breath Objective Objective Vital Signs Date Time Temp Pulse Resp B/P (MAP) Pulse Ox O2 Delivery O2 Flow Rate FiO2 01/23/21 15:00 65 20 116/73 (87) 95 Room Air 01/23/21 12:00 98.4 98.4 Intake and Output 01/23/21 07:00 Intake Total 1184.19 ml Output Total 890 ml Balance 294.19 ml Intake Oral 900 ml IV Total 284.19 ml Output Urine Total 890 ml Physical Exam Abdomen: Normal bowel sounds Heart: Regular rate General: No acute distress Lungs: Other (Slightly decreased breath sounds) Assessment Assessment 1. Acute coronary syndrome with atypical presentation of a myocardial infarction. Elevated high-sensitivity troponin as above. The patient has remained pain-free since admission. Rhythm and blood pressure have remained stable. He denies any shortness of breath. Discussion with the patient's family yesterday led to continued medical treatment. He looks and feels quite well this morning. We had another family meeting today and after discussion with the patient's family we will continue on medical treatment. Echo pending. Patient has remained chest pain-free. Rhythm and blood pressure has remained stable. EKG as above and increased troponin also as above. After discussion with the patient's family they have decided on medical treatment at this time. We will proceed with present treatment. Echocardiogram pending. 2. Abdominal pain. Improved. Continue present treatments and monitoring. 3. 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 4. Hyperlipidemia. LDL of 110 with an HDL of 34. 5. History of borderline hypertension. Patient's blood pressure is controlled. We will continue present treatment. 6. Diabetes mellitus. Will monitor lab. Comment Review of Relevant I have reviewed the following items rik (where applicable) has been applied. Labs Laboratory Tests Test 01/22/21 02:15 01/22/21 04:11 01/22/21 06:10 01/22/21 08:37 White Blood Count 13.1 x10^3/uL (4.0-11.0) Red Blood Count 4.49 x10^6/uL (4.30-5.70) Hemoglobin 12.6 g/dL (13.0-17.5) Hematocrit 38.1 % (39.0-53.0) Mean Corpuscular Volume 85 fL (79-100) Mean Corpuscular Hemoglobin 28 pg (25-35) Mean Corpuscular Hemoglobin Concent 33 g/dL (31-37) Red Cell Distribution Width 13.1 % (11.5-14.5) Platelet Count 365 x10^3/uL (140-400) Neutrophils (%) (Auto) 48 % (31-73) Lymphocytes (%) (Auto) 39 % (24-48) Monocytes (%) (Auto) 9 % (0-9) Eosinophils (%) (Auto) 2 % (0-3) Basophils (%) (Auto) 1 % (0-3) Neutrophils # (Auto) 6.3 x10^3/uL (1.8-7.7) Lymphocytes # (Auto) 5.1 x10^3/uL (1.0-4.8) Monocytes # (Auto) 1.2 x10^3/uL (0.0-1.1) Eosinophils # (Auto) 0.3 x10^3/uL (0.0-0.7) Basophils # (Auto) 0.1 x10^3/uL (0.0-0.2) Activated Partial Thromboplast Time 34 SEC (24-38) Sodium Level 138 mmol/L (136-145) Potassium Level 3.7 mmol/L (3.5-5.1) Chloride Level 100 mmol/L (98-107) Carbon Dioxide Level 28 mmol/L (21-32) Anion Gap 10 (6-14) Blood Urea Nitrogen 28 mg/dL (8-26) Creatinine 1.7 mg/dL (0.7-1.3) Estimated GFR (Cockcroft-Gault) 39.2 BUN/Creatinine Ratio 16 (6-20) Glucose Level 370 mg/dL (70-99) Lactic Acid Level 2.6 mmol/L (0.4-2.0) 2.1 mmol/L (0.4-2.0) Calcium Level 8.1 mg/dL (8.5-10.1) Magnesium Level 2.0 mg/dL (1.8-2.4) Total Bilirubin 0.2 mg/dL (0.2-1.0) Aspartate Amino Transf (AST/SGOT) 17 U/L (15-37) Alanine Aminotransferase (ALT/SGPT) 27 U/L (16-63) Alkaline Phosphatase 85 U/L (46-116) Troponin I High Sensitivity 2518 ng/L (4-75) 62732 ng/L (4-75) Total Protein 7.3 g/dL (6.4-8.2) Albumin 2.9 g/dL (3.4-5.0) Albumin/Globulin Ratio 0.7 (1.0-1.7) Lipase 243 U/L (73-393) SARS-CoV-2 RNA (BLAYNE) Negative (Negative) SARS-CoV-2 Antigen (Rapid) Negative (NEGATIVE) Urine Collection Type Unknown Urine Color Yellow Urine Clarity Cloudy Urine pH 5.5 (<5.0-8.0) Urine Specific [place] 1.025 (1.000-1.030) Urine Protein >=300 mg/dL (NEG-TRACE) Urine Glucose (UA) >=1000 mg/dL (NEG) Urine Ketones (Stick) Negative mg/dL (NEG) Urine Blood Moderate (NEG) Urine Nitrite Negative (NEG) Urine Bilirubin Negative (NEG) Urine Urobilinogen Dipstick 0.2 mg/dL (0.2 mg/dL) Urine Leukocyte Esterase Small (NEG) Urine RBC 3-5 /HPF (0-2) Urine WBC 20-40 /HPF (0-4) Urine Squamous Epithelial Cells Few /LPF Urine Bacteria Many /HPF (0-FEW) Urine Hyaline Casts Few /HPF Urine Mucus Slight /LPF Test 01/22/21 09:55 01/22/21 12:34 01/22/21 16:05 01/22/21 17:40 Heparin Anti-Xa Act, Unfractionated 0.18 IU/mL (0.30-0.70) 0.29 IU/mL (0.30-0.70) Troponin I High Sensitivity > 52177 ng/L (4-75) Glucose (Fingerstick) 233 mg/dL (70-99) 252 mg/dL (70-99) Test 01/22/21 21:45 01/23/21 04:30 01/23/21 09:08 01/23/21 13:06 Heparin Anti-Xa Act, Unfractionated 0.47 IU/mL (0.30-0.70) 0.45 IU/mL (0.30-0.70) White Blood Count 14.4 x10^3/uL (4.0-11.0) Red Blood Count 4.16 x10^6/uL (4.30-5.70) Hemoglobin 11.5 g/dL (13.0-17.5) Hematocrit 35.7 % (39.0-53.0) Mean Corpuscular Volume 86 fL (79-100) Mean Corpuscular Hemoglobin 28 pg (25-35) Mean Corpuscular Hemoglobin Concent 32 g/dL (31-37) Red Cell Distribution Width 13.1 % (11.5-14.5) Platelet Count 286 x10^3/uL (140-400) Neutrophils (%) (Auto) 70 % (31-73) Lymphocytes (%) (Auto) 20 % (24-48) Monocytes (%) (Auto) 9 % (0-9) Eosinophils (%) (Auto) 0 % (0-3) Basophils (%) (Auto) 1 % (0-3) Neutrophils # (Auto) 10.2 x10^3/uL (1.8-7.7) Lymphocytes # (Auto) 2.8 x10^3/uL (1.0-4.8) Monocytes # (Auto) 1.3 x10^3/uL (0.0-1.1) Eosinophils # (Auto) 0.0 x10^3/uL (0.0-0.7) Basophils # (Auto) 0.1 x10^3/uL (0.0-0.2) Sodium Level 138 mmol/L (136-145) Potassium Level 3.8 mmol/L (3.5-5.1) Chloride Level 102 mmol/L (98-107) Carbon Dioxide Level 27 mmol/L (21-32) Anion Gap 9 (6-14) Blood Urea Nitrogen 28 mg/dL (8-26) Creatinine 1.6 mg/dL (0.7-1.3) Estimated GFR (Cockcroft-Gault) 42.0 Glucose Level 150 mg/dL (70-99) Calcium Level 8.4 mg/dL (8.5-10.1) Triglycerides Level 54 mg/dL (0-150) Cholesterol Level 155 mg/dL (0-200) LDL Cholesterol, Calculated 110 mg/dL (0-100) VLDL Cholesterol, Calculated 11 mg/dL (0-40) Non-HDL Cholesterol Calculated 121 mg/dL (0-129) HDL Cholesterol 34 mg/dL (40-60) Cholesterol/HDL Ratio 4.6 Glucose (Fingerstick) 166 mg/dL (70-99) 194 mg/dL (70-99) Laboratory Tests Test 01/22/21 17:40 01/22/21 21:45 01/23/21 04:30 01/23/21 09:08 Glucose (Fingerstick) 252 mg/dL (70-99) 166 mg/dL (70-99) Heparin Anti-Xa Act, Unfractionated 0.47 IU/mL (0.30-0.70) 0.45 IU/mL (0.30-0.70) White Blood Count 14.4 x10^3/uL (4.0-11.0) Red Blood Count 4.16 x10^6/uL (4.30-5.70) Hemoglobin 11.5 g/dL (13.0-17.5) Hematocrit 35.7 % (39.0-53.0) Mean Corpuscular Volume 86 fL (79-100) Mean Corpuscular Hemoglobin 28 pg (25-35) Mean Corpuscular Hemoglobin Concent 32 g/dL (31-37) Red Cell Distribution Width 13.1 % (11.5-14.5) Platelet Count 286 x10^3/uL (140-400) Neutrophils (%) (Auto) 70 % (31-73) Lymphocytes (%) (Auto) 20 % (24-48) Monocytes (%) (Auto) 9 % (0-9) Eosinophils (%) (Auto) 0 % (0-3) Basophils (%) (Auto) 1 % (0-3) Neutrophils # (Auto) 10.2 x10^3/uL (1.8-7.7) Lymphocytes # (Auto) 2.8 x10^3/uL (1.0-4.8) Monocytes # (Auto) 1.3 x10^3/uL (0.0-1.1) Eosinophils # (Auto) 0.0 x10^3/uL (0.0-0.7) Basophils # (Auto) 0.1 x10^3/uL (0.0-0.2) Sodium Level 138 mmol/L (136-145) Potassium Level 3.8 mmol/L (3.5-5.1) Chloride Level 102 mmol/L (98-107) Carbon Dioxide Level 27 mmol/L (21-32) Anion Gap 9 (6-14) Blood Urea Nitrogen 28 mg/dL (8-26) Creatinine 1.6 mg/dL (0.7-1.3) Estimated GFR (Cockcroft-Gault) 42.0 Glucose Level 150 mg/dL (70-99) Calcium Level 8.4 mg/dL (8.5-10.1) Triglycerides Level 54 mg/dL (0-150) Cholesterol Level 155 mg/dL (0-200) LDL Cholesterol, Calculated 110 mg/dL (0-100) VLDL Cholesterol, Calculated 11 mg/dL (0-40) Non-HDL Cholesterol Calculated 121 mg/dL (0-129) HDL Cholesterol 34 mg/dL (40-60) Cholesterol/HDL Ratio 4.6 Test 01/23/21 13:06 Glucose (Fingerstick) 194 mg/dL (70-99) Medications Current Medications Sodium Chloride 1,000 ml @ 1,000 mls/hr 1X ONCE IV Last administered on 01/22/21at 02:49; Start 01/22/21 at 02:15; Stop 01/22/21 at 03:14; Status DC Fentanyl Citrate (Fentanyl 2ml Vial) 50 mcg 1X ONCE IVP Last administered on 01/22/21at 02:48; Start 01/22/21 at 02:15; Stop 01/22/21 at 02:23; Status DC Ondansetron HCl (Zofran) 4 mg 1X ONCE IVP Last administered on 01/22/21at 03:42; Start 01/22/21 at 03:15; Stop 01/22/21 at 03:16; Status DC Aspirin (Aspirin Chewable) 324 mg 1X ONCE PO Last administered on 01/22/21at 03:42; Start 01/22/21 at 03:30; Stop 01/22/21 at 03:31; Status DC Heparin Sodium/ Dextrose 250 ml @ 14.4 mls/hr CONT PRN IV SEE I/O RECORD Last administered on 01/23/21at 00:22; Start 01/22/21 at 03:30 Ondansetron HCl (Zofran) 4 mg PRN Q8HRS PRN IVP NAUSEA/VOMITING; Start 01/22/21 at 04:30; Stop 01/23/21 at 04:29; Status DC Fentanyl Citrate (Fentanyl 2ml Vial) 50 mcg PRN Q2HR PRN IVP pain; Start 01/22/21 at 04:30 Sodium Chloride 1,000 ml @ 75 mls/hr 1X ONCE IV ; Start 01/22/21 at 04:30; Stop 01/22/21 at 17:49; Status DC Acetaminophen (Tylenol) 650 mg PRN Q6HRS PRN PO Headaches, Temp > 101.5'; Start 01/22/21 at 07:00 Lorazepam (Ativan Inj) 0.5 mg PRN Q6HRS PRN IVP ANXIETY / AGITATION; Start 01/22/21 at 07:00 Lorazepam (Ativan) 1 mg PRN Q6HRS PRN PO ANXIETY / AGITATION; Start 01/22/21 at 07:00 Ondansetron HCl (Zofran) 4 mg PRN Q6HRS PRN IVP NAUSEA/VOMITING; Start 01/22/21 at 07:00 Al Hydroxide/Mg Hydroxide (Mylanta Plus Xs) 30 ml PRN Q3HRS PRN PO HEARTBURN / GAS; Start 01/22/21 at 07:00 Zolpidem Tartrate (Ambien) 5 mg PRN QHS PRN PO INSOMNIA, MAY REPEAT IN 1HR; Start 01/22/21 at 07:00 Sodium Chloride (Normal Saline Flush) 3 ml QSHIFT PRN IV AFTER MEDS AND BLOOD DRAWS; Start 01/22/21 at 07:00 Acetaminophen/ Hydrocodone Bitart (Lortab 5/325) 1 tab PRN Q4HRS PRN PO PAIN; Start 01/22/21 at 07:00 Magnesium Hydroxide (Milk Of Magnesia) 2,400 mg PRN Q12HR PRN PO CONSTIPATION; Start 01/22/21 at 07:00 Insulin Glargine (Lantus Syringe) 50 unit QHS SQ Last administered on 01/22/21at 20:57; Start 01/22/21 at 21:00 Insulin Human Lispro (HumaLOG) 5 units TIDWMEALS SQ Last administered on at 17:50; Start 01/22/21 at 08:00 Dextrose (Dextrose 50%-Water Syringe) 12.5 gm PRN Q15MIN PRN IV SEE COMMENTS; Start 01/22/21 at 07:00 Aspirin (Aspirin Chewable) 324 mg DAILY ONCE PO Last administered on 01/22/21at 13:03; Start 01/22/21 at 12:45; Stop 01/22/21 at 12:46; Status DC Metoprolol Tartrate (Lopressor) 25 mg BID PO Last administered on 01/23/21at 09:38; Start 01/22/21 at 21:00 Atorvastatin Calcium (Lipitor) 40 mg QHS PO Last administered on 01/22/21at 20:48; Start 01/22/21 at 21:00 Active Scripts Active Reported Meclizine Hcl 12.5 Mg Tablet 1 Tab PO BID Humalog (Insulin Lispro) 100 Unit/1 Ml Vial 5 Unit SQ TIDAC Lantus (Insulin Glargine,Hum.rec.anlog) 100 Unit/1 Ml Vial 50 Unit SQ QHS Hydrocodone-Acetamin 5-325 mg (Hydrocodone/Acetaminophen) 1 Each Tablet 1 Each PO PRN Q6HRS PRN Mucinex (Guaifenesin) 600 Mg Tablet.er 1 Tab PO BID 10 Days Coreg (Carvedilol) 12.5 Mg Tablet 12.5 Mg PO BIDWMEALS Chlorthalidone (Chlorthalidone) 25 Mg Tablet 25 Mg PO DAILY Potassium Chloride (Potassium Chloride) 20 Meq Tablet.er 20 Meq PO DAILY Lipitor (Atorvastatin Calcium) 40 Mg Tablet 1 Tab PO DAILY Amlodipine Besylate 10 Mg Tablet 10 Mg PO DAILY Lisinopril 40 Mg Tablet 40 Mg PO DAILY Hydralazine Hcl 25 Mg Tablet 25 Mg PO Q8HRS Vitals/I & O Vital Sign - Last 24 Hours 01/22/21 01/22/21 01/22/21 01/22/21 17:00 18:00 19:00 20:00 Pulse 71 76 72 Resp 15 19 18 B/P (MAP) 135/78 (97) 128/83 (98) 143/77 (99) Pulse Ox 97 97 96 O2 Delivery Room Air Room Air Room Air Room Air 01/22/21 01/22/21 01/22/21 01/22/21 20:00 20:49 21:00 22:00 Temp 98.9 98.9 Pulse 70 74 70 62 Resp 20 18 18 B/P (MAP) 131/70 (90) 127/77 138/76 (96) 109/67 (81) Pulse Ox 97 97 95 O2 Delivery Room Air Room Air Room Air 01/22/21 01/23/21 01/23/21 01/23/21 23:00 00:00 00:00 01:00 Pulse 64 68 64 Resp 17 19 12 B/P (MAP) 110/67 (81) 113/67 (82) 110/63 (79) Pulse Ox 96 93 97 O2 Delivery Room Air Room Air Room Air Room Air 01/23/21 01/23/21 01/23/21 01/23/21 02:00 03:00 04:00 04:00 Temp 98.6 98.6 Pulse 65 77 66 Resp 18 18 18 B/P (MAP) 124/71 (88) 119/87 (98) 109/66 (80) Pulse Ox 96 95 95 O2 Delivery Room Air Room Air Room Air Room Air 01/23/21 01/23/21 01/23/21 01/23/21 05:00 06:00 07:00 08:00 Temp 99.0 99.0 Pulse 64 68 69 70 Resp 15 17 22 18 B/P (MAP) 124/76 (92) 132/81 (98) 109/58 (75) 137/66 (89) Pulse Ox 97 96 96 97 O2 Delivery Room Air Room Air Room Air Room Air 01/23/21 01/23/21 01/23/21 01/23/21 08:00 09:00 09:38 10:00 Pulse 73 73 73 Resp 19 19 B/P (MAP) 122/64 (83) 122/64 122/64 (83) Pulse Ox 96 96 O2 Delivery Room Air Room Air Room Air 01/23/21 01/23/21 01/23/21 01/23/21 11:00 12:00 12:00 13:00 Temp 98.4 98.4 Pulse 65 64 66 Resp 18 20 19 B/P (MAP) 113/58 (76) 133/79 (97) 99/64 (76) Pulse Ox 96 95 98 O2 Delivery Room Air Room Air Room Air Room Air 01/23/21 01/23/21 14:00 15:00 Pulse 66 65 Resp 19 20 B/P (MAP) 120/74 (89) 116/73 (87) Pulse Ox 98 95 O2 Delivery Room Air Room Air Intake and Output 01/22/21 01/22/21 01/23/21 15:00 23:00 07:00 Intake Total 100 ml 926.2 ml 157.99 ml Output Total 450 ml 250 ml 190 ml Balance -350 ml 676.2 ml -32.01 ml Justifications for Admission Other Justification CHRIS KNOTT MD Jan 23, 2021 16:17
[2021-01-23] MEDS: ASPIRIN ENTERIC COATED 325 MG TABLET.DR. PO SCH (17:15)
[2021-01-23] MEDS ORDERED: ASPIRIN ENTERIC COATED 325 MG TABLET.DR. PO SCH (18:00)
[2021-01-23] MEDS: ATORVASTATIN CALCIUM 40 MG TABLET. PO SCH (20:41)
[2021-01-23] MEDS: INSULIN GLARGINE SYRINGE. SQ SCH (20:43)
[2021-01-24] VITALS (7 sets, daily range): BP systolic 82–132; BP diastolic 51–76
[2021-01-24] MEDS: INSULIN LISPRO 300 UNITS/3 ML VIAL. SQ SCH ×3 (08:00→17:00)
[2021-01-24 08:33] LABS: BASO # 0.1 x10^3/uL (0.0-0.2); BASO % 1 % (0-3); EOS % 0 % (0-3); HEMATOCRIT 34.1 % (39.0-53.0); LYMPH # 2.5 x10^3/uL (1.0-4.8); LYMPH % 17 % (24-48); MEAN CORPUSCULAR HEMOGLOBIN 28 pg (25-35); MEAN CORPUSCULAR HGB CONC 32 g/dL (31-37); MEAN CORPUSCULAR VOLUME 85 fL (79-100); MONO # 1.6 x10^3/uL (0.0-1.1); MONO % 11 % (0-9); NEUT % 70 % (31-73); PLATELET COUNT 305 x10^3/uL (140-400); RED BLOOD COUNT 4.01 x10^6/uL (4.30-5.70); RED CELL DISTRIBUTION WIDTH 13.2 % (11.5-14.5); WHITE BLOOD COUNT 14.2 x10^3/uL (4.0-11.0)
[2021-01-24 08:48] LABS: CREATININE 1.6 mg/dL (0.7-1.3); POTASSIUM 3.4 mmol/L (3.5-5.1)
[2021-01-24] MEDS: ASPIRIN ENTERIC COATED 325 MG TABLET.DR. PO SCH (09:13)
[2021-01-24] MEDS: METOPROLOL TART IMMED RELEASE 25 MG TABLET. PO SCH ×2 (09:14→19:58)
--- NOTE | 2021-01-24 11:46 | CARD ---
MR#: [id number] Account#: Date of Study: 01/23/2021 Ordering Physician: Muna: Joanie Felix RDCS APPROVED REPORT EXAM: Two-dimensional and M-mode echocardiogram with Doppler and color Doppler. Other Information Quality : AverageHR: 70bpm Rhythm : NSR INDICATION Non STEMI 2D DIMENSIONS Left Atrium(2D)3.3 (1.6-4.0cm)IVSd0.8 (0.7-1.1cm) Aortic Root(2D)2.4 (2.0-3.7cm)LVDd5.5 (3.9-5.9cm) LVOT Diameter2.0 (1.8-2.4cm)PWd0.8 (0.7-1.1cm) LVDs4.9 (2.5-4.0cm)FS (%) 10.4 % SV33.2 ml Aortic Valve AoV Peak Uli.81.0cm/sAoV VTI14.4cm AO Peak GR.2.6mmHgLVOT Peak Uli.62.1cm/s AO Mean GR.2mmHgAVA (VMAX)2.47cm2 Mitral Valve MV E Zhpxbdwo63.9cm/sMV DECEL [id number] MV A Zolmrpht16.6cm/sE/A Ratio1.1 MV A [id number] Tricuspid Valve TR P. [id number]/sTR Peak Gr.29mmHg LEFT VENTRICLE The Left Ventricle is mildly dilated. There is borderline concentric left ventricular hypertrophy. Le ft ventricle systolic function is severely impaired. The Ejection Fraction is estimated at 25%. Ther e is global hypokinesis of the left ventricle. Tissue Doppler imaging reveals abnormal left ventricul ar diastolic dysfunction. Transmitral Doppler flow pattern is Grade II-pseudonormal filling dynamics. No left ventricle thrombus noted on this study. There is no ventricular septal defect visualized. Th ere is no left ventricular aneurysm. There is no mass noted in the left ventricle. RIGHT VENTRICLE The right ventricle is normal size. There is normal right ventricular wall thickness. The right ventr icular systolic function is normal. ATRIA The left atrium size is normal. The right atrium size is normal. The interatrial septum is intact wit h no evidence for an atrial septal defect or patent foramen ovale as noted on 2-D or Doppler imaging. AORTIC VALVE The aortic valve is normal in structure and function. Doppler and Color Flow revealed trace to mild a ortic regurgitation. There is no significant aortic valvular stenosis. There is no aortic valvular ve getation. MITRAL VALVE The mitral valve is normal in structure and function. There is no evidence of mitral valve prolapse. There is no mitral valve stenosis. Doppler and Color-flow revealed mild mitral regurgitation. TRICUSPID VALVE The tricuspid valve is normal in structure and function. Doppler and Color Flow revealed mild tricusp id regurgitation. There is no tricuspid valve prolapse or vegetation. There is no tricuspid valve orion nosis. PULMONIC VALVE The pulmonary valve is normal in structure and function. GREAT VESSELS The aortic root is normal in size. IVC 1.73cm The IVC is dilated and collapses <50% with inspiration. with sniff 1.6cm PERICARDIAL EFFUSION There is no pleural effusion. There is no evidence of significant pericardial effusion. Critical Notification Critical Value: No <Conclusion> The Left Ventricle is mildly dilated. Left ventricle systolic function is severely impaired. The Ejection Fraction is estimated at 25%. There is global hypokinesis of the left ventricle. There is borderline concentric left ventricular hypertrophy. Doppler and Color Flow revealed trace to mild aortic regurgitation. There is no significant aortic valvular stenosis. Doppler and Color-flow revealed mild mitral regurgitation. Doppler and Color Flow revealed mild tricuspid regurgitation. Signed by : Renzo Dominguez MD Electronically Approved : 01/23/2021 13:38:56
--- NOTE | 2021-01-24 13:59 | PDOC ---
[facility] PROGRESS NOTE Date of Service DOS: DATE: 01/24/21 TIME: 13:53 Chief Complaint Chief Complaint NSTEMI DM2 with hyperglycemia HTN HLD History CVA Plan: We'll admit patient on telemetry with heparin drip Consult to cardiology Continue heparin gtt Continue to trend troponins Echocardiogram pending Resume home medications FEN - Cardiac diet PPX - Heparin FULL CODE Dispo - inpatient for above Surrogate decision-maker is son-in-law (Joe Ma). History of Present Illness History of Present Illness Patient is a 80-year-old Mauritian-speaking male with a total history CVA, DM2, HTN, HLD, who presents to the ED with complaints of epigastric abdominal pain for the past 2 days. He reports nonradiating pain, with associated nausea. He denies any vomiting or chest pain. Labs on admission showed WBC 13.1, hemoglobin 12.6, hematocrit 30.1, BUN 28, creatinine 1.7, CBG 3-17, lactic acid 2.6, album in 2.9, high-sensitivity troponin 2518. EKG concerning for ST elevations in lead III and aVF. Case was discussed with on-call wire stitcher machine Dr. Mcginnis who believes an EKG resembles more NSTEMI pattern, and agrees to to treat the patient medically with a heparin drip. Patient was admitted for further medical management. 01/23: Continue to deny chest pain. Family is opted for medical therapy at this time. Echocardiogram pending. Further discussion with family about treatment I believe today with cardiology. Continue heparin gtt. 01/24/2021 Patient seen and examined bedside. He apparently pulled his IV. He has some confusion. Family still opted for medical management. No further cardiology at this time. Still on heparin drip. Patient's chart, labs, images were reviewed and discussed with RN Vitals/I&O Vitals/I&O: Vital Signs Date Time Temp Pulse Resp B/P (MAP) Pulse Ox O2 Delivery O2 Flow Rate FiO2 01/24/21 11:00 98.1 72 18 111/67 (82) 92 Room Air 98.1 I & O 01/23/21 01/23/21 01/24/21 15:00 23:00 07:00 Intake Total 500 ml 758.9 ml 222.76 ml Output Total 600 ml 200 ml 280 ml Balance -100 ml 558.9 ml -57.24 ml Physical Exam General: No acute distress Heart: Regular rate Lungs: Clear Abdomen: Normal bowel sounds Extremities: No clubbing, No cyanosis Skin: No breakdown Labs Labs: Laboratory Tests Test 01/23/21 16:28 01/24/21 08:05 01/24/21 12:28 Glucose (Fingerstick) 181 mg/dL (70-99) 73 mg/dL (70-99) White Blood Count 14.2 x10^3/uL (4.0-11.0) Red Blood Count 4.01 x10^6/uL (4.30-5.70) Hemoglobin 11.0 g/dL (13.0-17.5) Hematocrit 34.1 % (39.0-53.0) Mean Corpuscular Volume 85 fL (79-100) Mean Corpuscular Hemoglobin 28 pg (25-35) Mean Corpuscular Hemoglobin Concent 32 g/dL (31-37) Red Cell Distribution Width 13.2 % (11.5-14.5) Platelet Count 305 x10^3/uL (140-400) Neutrophils (%) (Auto) 70 % (31-73) Lymphocytes (%) (Auto) 17 % (24-48) Monocytes (%) (Auto) 11 % (0-9) Eosinophils (%) (Auto) 0 % (0-3) Basophils (%) (Auto) 1 % (0-3) Neutrophils # (Auto) 10.0 x10^3/uL (1.8-7.7) Lymphocytes # (Auto) 2.5 x10^3/uL (1.0-4.8) Monocytes # (Auto) 1.6 x10^3/uL (0.0-1.1) Eosinophils # (Auto) 0.0 x10^3/uL (0.0-0.7) Basophils # (Auto) 0.1 x10^3/uL (0.0-0.2) Heparin Anti-Xa Act, Unfractionated 0.33 IU/mL (0.30-0.70) Sodium Level 135 mmol/L (136-145) Potassium Level 3.4 mmol/L (3.5-5.1) Chloride Level 100 mmol/L (98-107) Carbon Dioxide Level 29 mmol/L (21-32) Anion Gap 6 (6-14) Blood Urea Nitrogen 37 mg/dL (8-26) Creatinine 1.6 mg/dL (0.7-1.3) Estimated GFR (Cockcroft-Gault) 42.0 Glucose Level 78 mg/dL (70-99) Calcium Level 8.0 mg/dL (8.5-10.1) Comment Review of Relevant I have reviewed the following items rik (where applicable) has been applied. Medications: Current Medications Medications (Trade) Dose Ordered Sig/Cheng Route PRN Reason Start Time Stop Time Status Last Admin Dose Admin Aspirin (Ecotrin) 325 mg [id number] PO 01/23/21 17:00 01/24/21 09:13 Justifications for Admission Other Justification ELOISA GUERRERO MD Jan 24, 2021 13:59
[2021-01-24] MEDS ORDERED: IODIXANOL 320 MG/ML 100 ML VIAL. ONE ×2 (14:02→15:30)
[2021-01-24] MEDS ORDERED: LIDOCAINE 1% PF 2 ML VIAL. ONE (14:58)
[2021-01-24] MEDS ORDERED: fentaNYL PF VIAL 100 MCG/2 ML VIAL ONE (15:02)
[2021-01-24] MEDS ORDERED: MIDAZOLAM HCL/PF 2 MG/2 ML VIAL. ONE (15:03)
[2021-01-24] MEDS ORDERED: VERAPAMIL 5 MG/2 ML VIAL. ONE (15:03)
[2021-01-24] MEDS ORDERED: NITROGLYCERIN 200 MCG/2 ML SYRINGE FOR CATH/VASC LAB. ONE (15:03)
[2021-01-24] MEDS ORDERED: HEPARIN for IV BOLUS 10,000 UNIT/10 ML VIAL. ONE (15:03)
--- NOTE | 2021-01-24 15:22 | NUR ---
SS following for discharge planning. SS reviewed pt chart and discussed with pt RN. Pt is from home and is currently on room air. COVID19 negative. Cardiology following. Pt having left heart cath today. SS will continue to follow for discharge planning.
[2021-01-24] MEDS ORDERED: NITROGLYCERIN 200 MCG/2 ML SYRINGE FOR CATH/VASC LAB. IART ONE (15:30)
[2021-01-24] MEDS ORDERED: fentaNYL PF VIAL 100 MCG/2 ML VIAL IV ONE (15:30)
[2021-01-24] MEDS ORDERED: HEPARIN for IV BOLUS 10,000 UNIT/10 ML VIAL. IART ONE (15:30)
[2021-01-24] MEDS ORDERED: IODIXANOL 320 MG/ML 100 ML VIAL. IART ONE (15:30)
[2021-01-24] MEDS ORDERED: LIDOCAINE 1% PF 2 ML VIAL. INJ ONE (15:30)
[2021-01-24] MEDS ORDERED: VERAPAMIL 5 MG/2 ML VIAL. IART ONE (15:30)
[2021-01-24] MEDS ORDERED: MIDAZOLAM HCL/PF 2 MG/2 ML VIAL. IV ONE (15:30)
[2021-01-24] MEDS ORDERED: CONTRAST GIVEN. MC PRN (15:30)
[2021-01-24] MEDS ORDERED: TIROFIBAN 5MG -0.9% NS 100 ML IV ONE (15:34)
[2021-01-24] MEDS ORDERED: HEPARIN 25,000UTS/250ML PREMIX 250 ML IV ONE (15:41)
[2021-01-24] MEDS: TIROFIBAN 5MG -0.9% NS 100 ML IV PRN ×2 (16:04→21:31)
[2021-01-24] MEDS: HEPARIN 25,000UTS/250ML PREMIX 250 ML IV PRN (16:07)
--- NOTE | 2021-01-24 16:56 | PDOC ---
Date of Service: DATE: 01/24/21 TIME: 16:50 Progress Note: Met with patient, son, and daughter. Conduit Helper line was utilized for entire encounter. Discussed echo findings of cardiomyopathy, elevated troponin, and risk factors. Discussed conservative measures with medical management versus aggressive measures with left heart catheterization including risks and benefits of each. After further discussion, patient and family collectively desire to pursue aggressive measures with cardiac catheterization. R/b/a were again discussed and they are agreeable to proceed. All questions were answered. Justifications for Admission Other Justification CHEO MCKEON APRN Jan 24, 2021 16:56
[2021-01-24] MEDS: POTASSIUM CHLORIDE 20 MEQ TABLET.ER. PO SCH (19:58)
[2021-01-24] MEDS: ATORVASTATIN CALCIUM 40 MG TABLET. PO SCH (19:59)
[2021-01-24] MEDS: INSULIN GLARGINE SYRINGE. SQ SCH (21:00)
[2021-01-25 03:10] VITALS: BP 122/69
[2021-01-25 07:00] VITALS: BP 143/88
[2021-01-25] MEDS: INSULIN LISPRO 300 UNITS/3 ML VIAL. SQ SCH ×3 (08:00→17:00)
[2021-01-25] MEDS: HEPARIN 25,000UTS/250ML PREMIX 250 ML IV PRN (09:36)
[2021-01-25] MEDS: ASPIRIN ENTERIC COATED 325 MG TABLET.DR. PO SCH (09:40)
[2021-01-25] MEDS: POTASSIUM CHLORIDE 20 MEQ TABLET.ER. PO SCH (09:41)
[2021-01-25] MEDS: METOPROLOL TART IMMED RELEASE 25 MG TABLET. PO SCH (09:42)
[2021-01-25] MEDS ORDERED: TIROFIBAN 5MG -0.9% NS 100 ML IV PRN (10:30)
--- NOTE | 2021-01-25 10:48 | CARD ---
MR#: [id number] Date of Study: 01/24/2021 Ordering Physician: STEFFANIE TORRES, Referring Physician: STEFFANIE TORRES, Tech: RT Kwame(R)() APPROVED REPORT Technologist: RT Kwame(R)() Nurse: Seble Schaefer RN Procedure(s) performed: FL TIME: 4.6 MIN DOSE: 60 GYCM2 CONTRAST: 40 ML MODERATE SEDATION: 53 MIN LHC, Coronary angiography INDICATION The indication(s) include : STEMI (>48 hrs to = 72 hrs). [facility] Clinical Frailty Scale [facility] Clinical Frailty Scale: Severely Frail Heart Failure Heart Failure: Yes If Yes, Newly Diagnosed: Yes If Yes, HF Type: Diastolic Systolic If Yes, NYHA Class: Class III CASE TECHNIQUE IV conscious sedation was used throughout procedure with appropriate monitoring and was performed in the presence of a registered nurse who was an independent trained observer other than the physician p erforming the procedure. During this case, Fluoroscopy and low osmolar contrast were used for imaging . Specimen(s) Removed: N/A Estimated Blood loss: 15 cc's. PROCEDURE NARRATIVE Clinical information: Mr. Sweeney is a 80-year-old male who was admitted to the hospital approximately 72 hours ago in the setting of atypical and epigastric chest discomfort and initial EKG revealed ST elevation clarence cardial infarction and based on discussion with the patient and the family they had elected for medic al therapy. Apparently, after further discussions over the last 24 hours with the patient's family kulwant pfeiffer now wish to have full aggressive intervention and therefore the patient was brought to the cathet erization laboratory for further evaluation of his coronary anatomy. Procedure details: After appropriate informed consent through a medical service technician service the patient was brought to [facility] catheterization lab. The right wrist was prepped and draped in usual sterile fashion. Under 1% l idocaine local anesthesia a 6 Maori sheath was placed in the right radial artery. Next, diagnostic angiography was performed with a 6 Maori TIG catheter. Of note, there was difficulty manipulating [facility] subclavian vasculature which required the use of a Glidewire. A left ventricular end-diastolic pr essure was obtained with a TIG catheter and a pullback was performed. At case completion the cathete rs and sheath were removed and hemostasis was achieved via Terumo radial band. No acute complications noted. Findings: LVEDP 15 mmHg Aorta 90/45 Coronary angiography: Left main is a large-caliber vessel with mild luminal irregularities LAD is a moderate caliber vessel with a mid 90% stenosis involving the first diagonal bifurcation D1 is a moderate caliber vessel with an ostial 70% stenosis and mild focal aneurysmal segment followe d by a proximal 70% stenosis Left circumflex is a moderate caliber vessel with mild diffuse 40 to 50% stenosis. OM1 is a moderate caliber vessel with a proximal 70% stenosis prior to a bifurcation. RCA is a very large caliber mildly aneurysmal dominant vessel with a proximal 80% stenosis in the mid 90% thrombotic occlusion with JORGE ALBERTO II flow. RPDA, RPL are moderate caliber vessels with mild luminal irregularities Conclusion 1. Mildly elevated left-sided filling pressures 2. Severe three-vessel coronary artery disease 3. Delayed presentation of a large inferolateral MN Recommendations 1. Continue heparin drip and initiate tirofiban drip. 2. Given the patient's multivessel disease he should be evaluated for possible coronary artery bypas s surgery. We will attempt to transfer the patient to an appropriate facility and work with our soci al worker team to determine an appropriate accepting facility given his lack of insurance. 3. Patient and family updated through the farrowing manager service. Signed by : Steffanie Torres, Electronically Approved : 01/25/2021 10:47:45
[2021-01-25 11:00] VITALS: BP 114/62
--- NOTE | 2021-01-25 11:35 | NUR ---
SS following up with discharge planning. SS reviewed pt chart and discussed with pt RN. Pt is currently on room air. COVID19 negative. Pt had heart cath on 01/24/2021. Cardiology following. Pt on Heparin and Tirofiban drip. Self pay. Med Assist following. SS will continue to follow for discharge planning.
--- NOTE | 2021-01-25 12:36 | PDOC ---
CARDIO Progress Notes Date and Time Date of Service 01/25/21 Time of Evaluation 1230 Subjective Subjective: No Chest Pain, No shortness of breath Vitals Vitals Vital Signs Date Time Temp Pulse Resp B/P (MAP) Pulse Ox O2 Delivery O2 Flow Rate FiO2 01/25/21 11:00 97.6 68 20 114/62 (79) 97 Room Air 97.6 01/24/21 22:50 2.0 Weight Weight [ ] Input and Output Intake and Output Intake and Output 01/25/21 07:00 Intake Total 402 ml Output Total 150 ml Balance 252 ml Intake Oral 100 ml IV Total 302 ml Output Urine Total 150 ml Laboratory Labs Laboratory Tests Test 01/24/21 17:16 01/24/21 20:00 01/24/21 21:14 01/25/21 08:20 Glucose (Fingerstick) 65 mg/dL (70-99) 87 mg/dL (70-99) Heparin Anti-Xa Act, Unfractionated 0.37 IU/mL (0.30-0.70) 0.35 IU/mL (0.30-0.70) Test 01/25/21 08:28 Glucose (Fingerstick) 67 mg/dL (70-99) Microbiology Micro Microbiology 01/22/21 Urine Culture - Final, Complete Physical Exam HEENT: Neck Supple W Full Motion Chest: Symmetric LUNGS: Clear to Auscultation Heart: RRR (SA) Abdomen: Soft N/T Extremities: No Edema Neurology: alert, oriented, follow commands Assessment Assessment 1. Large inferolateral [place], delayed presentation 2. CAD; cath with severe 3V disease, on heparin drip 3. Ischemic cardiomyopathy; Echo with LVEF 30% 4. Acute on chronic systolic CHF; appears compensated 5. Hypertension; controlled 6. Hyperlipidemia 7. Diabetes, II 8. CKD 9. H/o CVA 10. Carotid stenosis, s/p left endarterectomy 11. Arrhythmia; AFIB versus 2nd degree heart block Recommendations EKG Secondary prevention Continue heparin gtt Covert metoprolol to long-acting Evaluation for possible CABG recommended given patient's multivessel disease. Case discussed with MILAD Roper with CTS at [facility]. CTS surgeon to review films, echo. This was discussed with patient and son-in-law, Joe via rehabilitation medicine physician line. Supportive care Justicifation of Admission Dx: Justifications for Admission: Justification of Admission Dx: Yes Comments: ACS Severe 3 vessel disease CHEO MCKEON APRN Jan 25, 2021 12:36
--- NOTE | 2021-01-25 14:34 | PDOC ---
[facility] PROGRESS NOTE Date of Service DOS: DATE: 01/25/21 TIME: 14:33 Chief Complaint Chief Complaint NSTEMI DM2 with hyperglycemia HTN HLD History CVA Plan: We'll admit patient on telemetry with heparin drip Consult to cardiology Continue heparin gtt Continue to trend troponins Echocardiogram pending Resume home medications FEN - Cardiac diet PPX - Heparin FULL CODE Dispo - inpatient for above Surrogate decision-maker is son-in-law (Joe Ma). History of Present Illness History of Present Illness Patient is a 80-year-old Liberian-speaking male with a total history CVA, DM2, HTN, HLD, who presents to the ED with complaints of epigastric abdominal pain for the past 2 days. He reports nonradiating pain, with associated nausea. He denies any vomiting or chest pain. Labs on admission showed WBC 13.1, hemoglobin 12.6, hematocrit 30.1, BUN 28, creatinine 1.7, CBG 3-17, lactic acid 2.6, album in 2.9, high-sensitivity troponin 2518. EKG concerning for ST elevations in lead III and aVF. Case was discussed with on-call collision technician Dr. Mcginnis who believes an EKG resembles more NSTEMI pattern, and agrees to to treat the patient medically with a heparin drip. Patient was admitted for further medical management. 01/23: Continue to deny chest pain. Family is opted for medical therapy at this time. Echocardiogram pending. Further discussion with family about treatment I believe today with cardiology. Continue heparin gtt. 01/24/2021 Patient seen and examined bedside. He apparently pulled his IV. He has some confusion. Family still opted for medical management. No further cardiology at this time. Still on heparin drip. Patient's chart, labs, images were reviewed and discussed with RN 01/25/2021 Status post left heart cath today showing triple-vessel disease. Pending tra nsfer to facility who may be able to accommodate a bypass surgery. Cardiology has discussed with family and they wish to proceed. Continue to be on heparin drip and tirofiban. Patient's chart, labs, images were reviewed and discussed with RN Vitals/I&O Vitals/I&O: Vital Signs Date Time Temp Pulse Resp B/P (MAP) Pulse Ox O2 Delivery O2 Flow Rate FiO2 01/25/21 11:00 97.6 68 20 114/62 (79) 97 Room Air 97.6 01/24/21 22:50 2.0 I & O 01/24/21 01/24/21 01/25/21 15:00 23:00 07:00 Intake Total 402 ml Output Total 150 ml Balance 252 ml Physical Exam General: Alert, Cooperative, No acute distress Heart: Regular rate Lungs: Clear Abdomen: Normal bowel sounds Extremities: No clubbing, No cyanosis Skin: No breakdown Labs Labs: Laboratory Tests Test 01/24/21 17:16 01/24/21 20:00 01/24/21 21:14 01/25/21 08:20 Glucose (Fingerstick) 65 mg/dL (70-99) 87 mg/dL (70-99) Heparin Anti-Xa Act, Unfractionated 0.37 IU/mL (0.30-0.70) 0.35 IU/mL (0.30-0.70) Test 01/25/21 08:28 01/25/21 12:31 Glucose (Fingerstick) 67 mg/dL (70-99) 136 mg/dL (70-99) Comment Review of Relevant I have reviewed the following items rik (where applicable) has been applied. Medications: Current Medications Medications (Trade) Dose Ordered Sig/Cheng Route PRN Reason Start Time Stop Time Status Last Admin Dose Admin Potassium Chloride (Klor-Con) 40 meq BID PO 01/24/21 21:00 01/25/21 20:59 01/25/21 09:41 Nitroglycerin (Nitroglycerin) 200 mcg 1X ONCE IART 01/24/21 15:30 01/24/21 15:31 DC 01/24/21 16:03 Verapamil HCl (Verapamil) 2.5 mg 1X ONCE IART 01/24/21 15:30 01/24/21 15:31 DC 01/24/21 16:04 Heparin Sodium (Porcine) (Heparin Sodium) 2,500 unit 1X ONCE IART 01/24/21 15:30 01/24/21 15:31 DC 01/24/21 16:06 Heparin Sodium/ Sodium Chloride (HEPARIN for ARTERIAL LINE FLUSH) 1,000 unit 1X ONCE IART 01/24/21 15:30 01/24/21 15:31 DC 01/24/21 16:02 Heparin Sodium/ Sodium Chloride (HEPARIN for ARTERIAL LINE FLUSH) 1,000 unit 1X ONCE IART 01/24/21 15:30 01/24/21 15:31 DC 01/24/21 16:03 Midazolam HCl (Versed) 2 mg 1X ONCE IV 01/24/21 15:30 01/24/21 15:31 DC 01/24/21 16:05 Fentanyl Citrate (Fentanyl 2ml Vial) 100 mcg 1X ONCE IV 01/24/21 15:30 01/24/21 15:31 DC 01/24/21 16:05 Iodixanol (Visipaque 320) 100 ml 1X ONCE IART 01/24/21 15:30 01/24/21 15:31 DC 01/24/21 16:03 Lidocaine HCl (Xylocaine-Mpf 1% 2ml Vial) 2 ml 1X ONCE INJ 01/24/21 15:30 01/24/21 15:31 DC 01/24/21 16:03 Tirofiban/Sodium Chloride 100 ml @ 0 mls/hr CONT PRN IV PER PROTOCOL 01/24/21 16:00 01/25/21 09:59 DC 01/24/21 21:31 Justifications for Admission Other Justification ELOISA GUERRERO MD Jan 25, 2021 14:34
[2021-01-25 15:00] VITALS: BP 124/75
[2021-01-25 19:40] VITALS: BP 99/64
[2021-01-25] MEDS: ATORVASTATIN CALCIUM 40 MG TABLET. PO SCH (20:07)
[2021-01-25] MEDS: INSULIN GLARGINE SYRINGE. SQ SCH (21:29)
[2021-01-25 22:50] VITALS: BP 110/60
[2021-01-26 02:45] VITALS: BP 125/69
[2021-01-26] MEDS: HEPARIN 25,000UTS/250ML PREMIX 250 ML IV PRN ×2 (03:29→21:29)
[2021-01-26 07:00] VITALS: BP 131/75
[2021-01-26] MEDS: INSULIN LISPRO 300 UNITS/3 ML VIAL. SQ SCH ×3 (07:50→17:00)
[2021-01-26] MEDS: METOPROLOL SUCC 24HR ER 25 MG TAB.ER.24H. PO SCH (07:51)
[2021-01-26] MEDS: ASPIRIN ENTERIC COATED 325 MG TABLET.DR. PO SCH (07:51)
--- NOTE | 2021-01-26 10:48 | NUR ---
HEPARIN RATE INCREASE UFH RESULTED AT 0.15, INCREASE BY 3U/KG/HR. RUNNING AT 13.8, INCREASED TO 16.2.
[2021-01-26 11:00] VITALS: BP 109/74
--- NOTE | 2021-01-26 12:40 | PDOC ---
CHEO MCKEON DIESEL ENGINE TESTER 01/26/21 1240: CARDIO Progress Notes Date and Time Date of Service 01/26/21 Time of Evaluation 1240 Subjective Subjective: No Chest Pain, No shortness of breath Vitals Vitals Vital Signs Date Time Temp Pulse Resp B/P (MAP) Pulse Ox O2 Delivery O2 Flow Rate FiO2 01/26/21 11:00 97.0 65 16 109/74 (86) 99 Nasal Cannula 2.0 97.0 Weight Weight [ ] Input and Output Intake and Output Intake and Output 01/26/21 07:00 Intake Total 155 ml Output Total 570 ml Balance -415 ml Intake Oral 120 ml IV Total 35 ml Output Urine Total 570 ml # Voids 1 Laboratory Labs Laboratory Tests Test 01/25/21 17:17 01/25/21 20:58 01/26/21 07:44 01/26/21 09:50 Glucose (Fingerstick) 131 mg/dL (70-99) 192 mg/dL (70-99) 100 mg/dL (70-99) Heparin Anti-Xa Act, Unfractionated 0.15 IU/mL (0.30-0.70) Microbiology Micro Microbiology 01/22/21 Urine Culture - Final, Complete Physical Exam HEENT: Neck Supple W Full Motion Chest: Symmetric LUNGS: Clear to Auscultation Heart: RRR (SA) Abdomen: Soft N/T Extremities: No Edema Neurology: alert, oriented, follow commands Assessment Assessment 1. Large inferolateral SD, delayed presentation 2. CAD; cath with severe 3V disease, on heparin drip 3. Ischemic cardiomyopathy; Echo with LVEF 30% 4. Acute on chronic systolic CHF; appears compensated 5. Hypertension; controlled 6. Hyperlipidemia 7. Diabetes, II 8. CKD 9. H/o CVA 10. Carotid stenosis, s/p left endarterectomy 11. Arrhythmia; AFIB versus 2nd degree heart block Recommendations Secondary prevention Continue heparin gtt Continue Toprol Add low-dose lisinopril Evaluation for possible CABG recommended given patient's multivessel disease. Case again discussed with MILAD Roper with CTS at [facility]. Awaiting CTS surgeon, Dr. Lynn to review case for consideration of CABG. This was discussed with patient and son, Jean Pierre via screen printing supervisor line. Supportive care Justicifation of Admission Dx: Justifications for Admission: Justification of Admission Dx: Yes CHRIS KNOTT MD 01/26/21 1622: CARDIO Progress Notes Assessment Assessment Patient seen and examined I agree with our nurse practitioners assessment and plan. Inferolateral SD, delayed presentation CAD; cath with severe 3V disease, on heparin drip. Being evaluated for possible bypass surgery. Ischemic cardiomyopathy; Echo with LVEF 30% Acute on chronic systolic CHF; compensated Hypertension; controlled Hyperlipidemia Diabetes, II CKD H/o CVA Carotid stenosis, s/p left endarterectomy Arrhythmia; AFIB versus 2nd degree heart block. Continuing Toprol and heparin. CHEO MCKEON APRN Jan 26, 2021 12:40 CHRIS KNOTT MD Jan 26, 2021 16:22
--- NOTE | 2021-01-26 12:45 | PDOC ---
[facility] [facility] PROGRESS NOTE Date of Service DOS: DATE: 01/26/21 TIME: 12:43 Chief Complaint Chief Complaint NSTEMI DM2 with hyperglycemia HTN HLD History CVA Plan: We'll admit patient on telemetry with heparin drip Consult to cardiology Continue heparin gtt Continue to trend troponins Echocardiogram pending Resume home medications FEN - Cardiac diet PPX - Heparin FULL CODE Dispo - inpatient for above Surrogate decision-maker is son-in-law (Joe Ma). History of Present Illness History of Present Illness Patient is a 80-year-old Kyrgyz-speaking male with a total history CVA, DM2, HTN, HLD, who presents to the ED with complaints of epigastric abdominal pain for the past 2 days. He reports nonradiating pain, with associated nausea. He denies any vomiting or chest pain. Labs on admission showed WBC 13.1, hemoglobin 12.6, hematocrit 30.1, BUN 28, creatinine 1.7, CBG 3-17, lactic acid 2.6, album in 2.9, high-sensitivity troponin 2518. EKG concerning for ST elevations in lead III and aVF. Case was discussed with on-call mailroom clerk Dr. Mcginnis who believes an EKG resembles more NSTEMI pattern, and agrees to to treat the patient medically with a heparin drip. Patient was admitted for further medical management. 01/23: Continue to deny chest pain. Family is opted for medical therapy at this time. Echocardiogram pending. Further discussion with family about treatment I believe today with cardiology. Continue heparin gtt. 01/24/2021 Patient seen and examined bedside. He apparently pulled his IV. He has some confusion. Family still opted for medical management. No further cardiology at this time. Still on heparin drip. Patient's chart, labs, images were reviewed and discussed with RN 01/25/2021 Status post left heart cath today showing triple-vessel disease. Pending tra nsfer to facility who may be able to accommodate a bypass surgery. Cardiology has discussed with family and they wish to proceed. Continue to be on heparin drip and tirofiban. Patient's chart, labs, images were reviewed and discussed with RN 01/26/2021 No acute events or night. Patient seen and examined bedside. Tolerating diet and doing well. No active chest pain at this time. Pending acceptance for any hospital does willing to do CABG for the patient. Patient's chart, labs, images were reviewed and discussed with RN Vitals/I&O Vitals/I&O: Vital Signs Date Time Temp Pulse Resp B/P (MAP) Pulse Ox O2 Delivery O2 Flow Rate FiO2 01/26/21 11:00 97.0 65 16 109/74 (86) 99 Nasal Cannula 2.0 97.0 I & O 01/25/21 01/25/21 01/26/21 15:00 23:00 07:00 Intake Total 35 ml 120 ml Output Total 120 ml 450 ml Balance 35 ml -120 ml -330 ml Physical Exam General: Alert, Cooperative, No acute distress Heart: Regular rate Lungs: Clear Abdomen: Normal bowel sounds Extremities: No clubbing, No cyanosis Skin: No breakdown Labs Labs: Laboratory Tests Test 01/25/21 17:17 01/25/21 20:58 01/26/21 07:44 01/26/21 09:50 Glucose (Fingerstick) 131 mg/dL (70-99) 192 mg/dL (70-99) 100 mg/dL (70-99) Heparin Anti-Xa Act, Unfractionated 0.15 IU/mL (0.30-0.70) Comment Review of Relevant I have reviewed the following items rik (where applicable) has been applied. Medications: Current Medications Medications (Trade) Dose Ordered Sig/Cheng Route PRN Reason Start Time Stop Time Status Last Admin Dose Admin Metoprolol Succinate (Toprol Xl) 25 mg DAILY PO 01/26/21 09:00 01/26/21 07:51 Justifications for Admission Other Justification ELOISA GUERRERO MD Jan 26, 2021 12:44
[2021-01-26 15:00] VITALS: BP 101/60
[2021-01-26] MEDS: LISINOPRIL 5 MG TABLET. PO SCH (15:30)
--- NOTE | 2021-01-26 15:51 | NUR ---
SS following up with discharge planning. SS reviewed pt chart and discussed with pt RN. Pt is currently requiring oxygen at two liters nasal canula. COVID19 negative. Cardiology following. Pt has Triple Vessel Dx. Heparin Drip. Self pay. Med Assist following and will apply for [facility] at discharge. Pt is not a citizen. SS spoke with pt via translator/interpreter phone and was notified that his name is Mac Solorzano. Chana in registration notified. Cardiology discussing with [facility]. Pt needing transferred for CABG. SS will continue to follow for discharge planning.
[2021-01-26 18:38] VITALS: BP 132/69
[2021-01-26] MEDS: ATORVASTATIN CALCIUM 40 MG TABLET. PO SCH (21:10)
[2021-01-26] MEDS: INSULIN GLARGINE SYRINGE. SQ SCH (21:11)
[2021-01-26 23:00] VITALS: BP 149/90
[2021-01-27] MEDS ORDERED: ALBUTEROL SULFATE 2.5 MG/3 ML NEBU. NEB ONE (01:30)
[2021-01-27 03:00] VITALS: BP 147/84
[2021-01-27 07:00] VITALS: BP 141/81
[2021-01-27] MEDS: INSULIN LISPRO 300 UNITS/3 ML VIAL. SQ SCH ×3 (08:00→18:08)
[2021-01-27] MEDS: ASPIRIN ENTERIC COATED 325 MG TABLET.DR. PO SCH (08:43)
[2021-01-27] MEDS: LISINOPRIL 5 MG TABLET. PO SCH (08:44)
[2021-01-27] MEDS: METOPROLOL SUCC 24HR ER 25 MG TAB.ER.24H. PO SCH (08:44)
[2021-01-27 10:48] VITALS: BP 125/78
--- NOTE | 2021-01-27 11:50 | PDOC ---
CHEO MCKEON ROBERTO 01/27/21 1150: CARDIO Progress Notes Date and Time Date of Service 01/27/21 Time of Evaluation 1150 Subjective Subjective: No Chest Pain, No shortness of breath Vitals Vitals Vital Signs Date Time Temp Pulse Resp B/P (MAP) Pulse Ox O2 Delivery O2 Flow Rate FiO2 01/27/21 10:48 98.6 65 20 125/78 (94) 95 Nasal Cannula 2.0 98.6 Weight Weight [ ] Input and Output Intake and Output Intake and Output 01/27/21 07:00 Intake Total 517 ml Output Total 800 ml Balance -283 ml Intake Oral 517 ml Output Urine Total 800 ml Laboratory Labs Laboratory Tests Test 01/26/21 12:42 01/26/21 17:32 01/26/21 18:10 01/26/21 19:44 Glucose (Fingerstick) 220 mg/dL (70-99) 109 mg/dL (70-99) 151 mg/dL (70-99) Heparin Anti-Xa Act, Unfractionated 0.36 IU/mL (0.30-0.70) Test 01/27/21 00:15 01/27/21 05:30 01/27/21 07:52 Heparin Anti-Xa Act, Unfractionated 0.31 IU/mL (0.30-0.70) 0.28 IU/mL (0.30-0.70) Glucose (Fingerstick) 74 mg/dL (70-99) Microbiology Micro Microbiology 01/22/21 Urine Culture - Final, Complete Physical Exam HEENT: Neck Supple W Full Motion Chest: Symmetric LUNGS: Clear to Auscultation Heart: RRR (SR) Abdomen: Soft N/T Extremities: No Edema Neurology: alert, oriented, follow commands Assessment Assessment 1. Large inferolateral [place], delayed presentation 2. CAD; cath with severe 3V disease, on heparin drip 3. Ischemic cardiomyopathy; Echo with LVEF 30% 4. Acute on chronic systolic CHF; appears compensated 5. Hypertension; controlled 6. Hyperlipidemia 7. Diabetes, II 8. CKD 9. H/o CVA 10. Carotid stenosis, s/p left endarterectomy 11. Arrhythmia; AFIB versus 2nd degree heart block Recommendations Secondary prevention Continue heparin gtt Continue Toprol Low-dose lisinopril Statin therapy Evaluation for possible CABG recommended given patient's multivessel disease. Awaiting decision from [facility] regarding transfer for consideration of CABG. Supportive care Justicifation of Admission Dx: Justifications for Admission: Justification of Admission Dx: Yes CHRIS KNOTT MD 01/27/21 1704: CARDIO Progress Notes Assessment Assessment Patient seen and examined I agree with our nurse practitioners assessment and plan. Large inferolateral NH, delayed presentation CAD; cath with severe 3V disease, on heparin drip. The patient remains pain- free. We are investigating possible transfer for bypass surgery or multivessel PCI. Ischemic cardiomyopathy; Echo with LVEF 30% Acute on chronic systolic CHF; appears compensated Hypertension; controlled Hyperlipidemia Diabetes, II CKD H/o CVA Carotid stenosis, s/p left endarterectomy Arrhythmias. CHEO MCKEON APRN Jan 27, 2021 11:50 CHRIS KNOTT MD Jan 27, 2021 17:04
--- NOTE | 2021-01-27 12:33 | PDOC ---
[employer] PROGRESS NOTE Date of Service DOS: DATE: 01/27/21 TIME: 12:29 Chief Complaint Chief Complaint NSTEMI DM2 with hyperglycemia HTN HLD History CVA Plan: We'll admit patient on telemetry with heparin drip Consult to cardiology Continue heparin gtt Continue to trend troponins Echocardiogram pending Resume home medications FEN - Cardiac diet PPX - Heparin FULL CODE Dispo - inpatient for above Surrogate decision-maker is son-in-law (Joe Ma). History of Present Illness History of Present Illness Patient is a 80-year-old Kyrgyz-speaking male with a total history CVA, DM2, HTN, HLD, who presents to the ED with complaints of epigastric abdominal pain for the past 2 days. He reports nonradiating pain, with associated nausea. He denies any vomiting or chest pain. Labs on admission showed WBC 13.1, hemoglobin 12.6, hematocrit 30.1, BUN 28, creatinine 1.7, CBG 3-17, lactic acid 2.6, album in 2.9, high-sensitivity troponin 2518. EKG concerning for ST elevations in lead III and aVF. Case was discussed with on-call cash van salesperson Dr. Mcginnis who believes an EKG resembles more NSTEMI pattern, and agrees to to treat the patient medically with a heparin drip. Patient was admitted for further medical management. 01/23: Continue to deny chest pain. Family is opted for medical therapy at this time. Echocardiogram pending. Further discussion with family about treatment I believe today with cardiology. Continue heparin gtt. 01/24/2021 Patient seen and examined bedside. He apparently pulled his IV. He has some confusion. Family still opted for medical management. No further cardiology at this time. Still on heparin drip. Patient's chart, labs, images were reviewed and discussed with RN 01/25/2021 Status post left heart cath today showing triple-vessel disease. Pending tra nsfer to facility who may be able to accommodate a bypass surgery. Cardiology has discussed with family and they wish to proceed. Continue to be on heparin drip and tirofiban. Patient's chart, labs, images were reviewed and discussed with RN 01/26/2021 No acute events or night. Patient seen and examined bedside. Tolerating diet and doing well. No active chest pain at this time. Pending acceptance for any hospital does willing to do CABG for the patient. Patient's chart, labs, images were reviewed and discussed with RN 01/27/2021 No acute events overnight. Patient seen and examined bedside. No acute chest pain or shortness of breath. Still pending transfer to facility that can perform CABG. Patient's chart, labs, images were reviewed and discussed with RN Vitals/I&O Vitals/I&O: Vital Signs Date Time Temp Pulse Resp B/P (MAP) Pulse Ox O2 Delivery O2 Flow Rate FiO2 01/27/21 10:48 98.6 65 20 125/78 (94) 95 Nasal Cannula 2.0 98.6 I & O 01/26/21 01/26/21 01/27/21 15:00 23:00 07:00 Intake Total 180 ml 237 ml 100 ml Output Total 500 ml 300 ml Balance 180 ml -263 ml -200 ml Physical Exam General: Alert, Cooperative, No acute distress Heart: Regular rate Lungs: Clear Abdomen: Normal bowel sounds Extremities: No clubbing, No cyanosis Skin: No breakdown Labs Labs: Laboratory Tests Test 01/26/21 12:42 01/26/21 17:32 01/26/21 18:10 01/26/21 19:44 Glucose (Fingerstick) 220 mg/dL (70-99) 109 mg/dL (70-99) 151 mg/dL (70-99) Heparin Anti-Xa Act, Unfractionated 0.36 IU/mL (0.30-0.70) Test 01/27/21 00:15 01/27/21 05:30 01/27/21 07:52 01/27/21 12:05 Heparin Anti-Xa Act, Unfractionated 0.31 IU/mL (0.30-0.70) 0.28 IU/mL (0.30-0.70) Glucose (Fingerstick) 74 mg/dL (70-99) 116 mg/dL (70-99) Comment Review of Relevant I have reviewed the following items rik (where applicable) has been applied. Medications: Current Medications Medications (Trade) Dose Ordered Sig/Cheng Route PRN Reason Start Time Stop Time Status Last Admin Dose Admin Lisinopril (Prinivil) 5 mg DAILY PO 01/26/21 15:30 01/27/21 08:44 Albuterol Sulfate (Ventolin Neb Soln) 2.5 mg 1X ONCE NEB 01/27/21 01:30 01/27/21 01:31 DC 01/27/21 01:19 Justifications for Admission Other Justification ELOISA GUERRERO MD Jan 27, 2021 12:33
[2021-01-27] MEDS: HEPARIN 25,000UTS/250ML PREMIX 250 ML IV PRN (13:10)
--- NOTE | 2021-01-27 13:41 | NUR ---
SS following up with discharge planning. SS reviewed pt chart and discussed with pt RN. Pt is currently requiring oxygen at two liters nasal canula. COVID19 negative. Cardiology following. Pt has Triple Vessel Dx. Heparin Drip. Self pay. Med Assist following. Pt needing CABG. Cardiology discussed case with C[facility] at [facility]. Currently awaiting response from [facility] at this time. SS will continue to follow for discharge planning.
[2021-01-27 15:00] VITALS: BP 123/66
[2021-01-27 19:00] VITALS: BP 123/62
[2021-01-27] MEDS: ATORVASTATIN CALCIUM 40 MG TABLET. PO SCH (20:59)
--- NOTE | 2021-01-27 21:11 | NUR ---
patient left via [facility] at approx [phone]. Report called to Kaylan BOYLE at [facility] [phone]. Pt going to room 2342. IV left in tact with heparin Gtt running. notified patient family.
[2021-01-27] MEDS: INSULIN GLARGINE SYRINGE. SQ SCH (21:18)
--- NOTE | 2021-02-14 09:38 | PDOC3 ---
Discharge Summary Visit Information Date of Admission: Jan 22, 2021 Date of Discharge: Jan 27, 2021 Final Diagnosis 1. Large inferolateral SC, delayed presentation 2. CAD; cath with severe 3V disease, on heparin drip 3. Ischemic cardiomyopathy; Echo with LVEF 30% 4. Acute on chronic systolic CHF; appears compensated 5. Hypertension; controlled 6. Hyperlipidemia 7. Diabetes, II 8. CKD 9. H/o CVA 10. Carotid stenosis, s/p left endarterectomy 11. Arrhythmia; AFIB versus 2nd degree heart block Brief Hospital Course Allergies Allergies Coded Allergies Type Severity Reaction Last Updated Verified No Known Drug Allergies 01/22/21 No Brief Hospital Course Mr. Jenkins is a 80 old male, admit with chest pain, Acute infarction, CAD, heparin gtt, cardiac cath showed triple vessel disease TRANSFER To [facility] for possible CABG recommended given patient's multivessel disease. Discharge Information Condition at Discharge: Improved Follow Up: Weeks Disposition/Orders: D/C to Another Facility Scheduled Amlodipine Besylate (Amlodipine Besylate) 10 Mg Tablet, 10 MG PO DAILY for HTN, (Reported) Entered as Reported by: SABA FUENTES on 01/22/21643 Last Taken: Unknown Dose on Unknown Date & Time Last Action: New Order on 01/22/21643 by SABA FUENTES Atorvastatin Calcium (Lipitor) 40 Mg Tablet, 1 TAB PO DAILY for Hylperlipidemia, #30 Ref 5 (Reported) Entered as Reported by: SABA FUENTES on 01/22/21643 Last Taken: Unknown Dose on Unknown Date & Time Last Action: New Order on 01/22/21643 by SABA FUENTES Carvedilol (Coreg ) 12.5 Mg Tablet, 12.5 MG PO BIDWMEALS for CARDIAC, (Reported) Entered as Reported by: SABA FUENTES on 01/22/21654 Last Taken: Unknown Dose on Unknown Date & Time Last Action: New Order on 01/22/21654 by SABA FUENTES Chlorthalidone (Chlorthalidone ) 25 Mg Tablet, 25 MG PO DAILY for DIURETIC, (Reported) Entered as Reported by: SABA FUENTES on 01/22/21643 Last Taken: Unknown Dose on Unknown Date & Time Last Action: New Order on 01/22/21643 by SABA FUENTES Guaifenesin (Mucinex) 600 Mg Tablet.er, 1 TAB PO BID for cough for 10 Days, #20 Ref 0 (Reported) Entered as Reported by: SABA FUENTES on 01/22/21654 Last Taken: Unknown Dose on Unknown Date & Time Last Action: New Order on 01/22/21654 by SABA FUENTES Hydralazine Hcl (Hydralazine Hcl) 25 Mg Tablet, 25 MG PO Q8HRS for HTN, (Reported) Entered as Reported by: SABA FUENTES on 01/22/21643 Last Taken: Unknown Dose on Unknown Date & Time Last Action: New Order on 01/22/21643 by SABA FUENTES Insulin Glargine,Hum.rec.anlog (Lantus) 100 Unit/1 Ml Vial, 50 UNIT SQ QHS for DM, (Reported) Entered as Reported by: SABA FUENTES on 01/22/21654 Last Taken: Unknown Dose on Unknown Date & Time Last Action: New Order on 01/22/21654 by SABA FUENTES Insulin Lispro (Humalog) 100 Unit/1 Ml Vial, 5 UNIT SQ TIDAC for DM, (Reported) Entered as Reported by: SABA FUENTES on 01/22/21654 Last Taken: Unknown Dose on Unknown Date & Time Last Action: New Order on 01/22/21654 by SABA FUENTES Lisinopril (Lisinopril) 40 Mg Tablet, 40 MG PO DAILY for HTN, (Reported) Entered as Reported by: SABA FUENTES on 01/22/21643 Last Taken: Unknown Dose on Unknown Date & Time Last Action: New Order on 01/22/21643 by SABA FUENTES Meclizine Hcl (Meclizine Hcl) 12.5 Mg Tablet, 1 TAB PO BID for Dizziness, #60 (Reported) Entered as Reported by: SABA FUENTES on 01/22/21654 Last Taken: Unknown Dose on Unknown Date & Time Last Action: New Order on 01/22/21654 by SABA FUENTES Potassium Chloride (Potassium Chloride ) 20 Meq Tablet.er, 20 MEQ PO DAILY for SUPPLEMENT, (Reported) Entered as Reported by: SABA FUENTES on 01/22/21643 Last Taken: Unknown Dose on Unknown Date & Time Last Action: New Order on 01/22/21643 by SABA FUENTES Scheduled PRN Hydrocodone/Acetaminophen (Hydrocodone-Acetamin 5-325 mg) 1 Each Tablet, 1 EACH PO PRN Q6HRS PRN for PAIN, (Reported) Entered as Reported by: SABA FUENTES on 01/22/21654 Last Taken: Unknown Dose on Unknown Date & Time Last Action: New Order on 01/22/21654 by SABA FUENTES Patient Instructions Patient Instructions transfer, pt seen by Dr. Camacho the day of transfer, Justicifation of Admission Dx: Justifications for Admission: Justification of Admission Dx: Yes DAVID LUCIA MD Feb 14, 2021 09:38
== END 2021-01-27 21:09 | disposition short-term general hospital (02) | DRG 280 ==
LOC: ER 01:56 → 1 WEST ICU 03:31 → 6 SOUTH 01-24 02:52
PROVIDERS: ADMIT Internal Medicine; ATTEND Internal Medicine
PROC: 4A023N7 Measurement of Cardiac Sampling and Pressure, Left Heart, Percutaneous Approach (ICD-10-PCS; principal; 2021-01-24)
PROC: B2111ZZ Fluoroscopy of Multiple Coronary Arteries using Low Osmolar Contrast (ICD-10-PCS; 2021-01-24)
DX: I21.4 Non-ST elevation (NSTEMI) myocardial infarction (principal); I50.23 Acute on chronic systolic (congestive) heart failure; I13.0 Hypertensive heart and chronic kidney disease with heart failure and stage 1 through stage 4 chronic kidney disease, or unspecified chronic kidney disease; J98.11 Atelectasis; E11.22 Type 2 diabetes mellitus with diabetic chronic kidney disease; E11.65 Type 2 diabetes mellitus with hyperglycemia; E78.00 Pure hypercholesterolemia, unspecified; E78.5 Hyperlipidemia, unspecified; I25.10 Atherosclerotic heart disease of native coronary artery without angina pectoris; I25.5 Ischemic cardiomyopathy; I65.29 Occlusion and stenosis of unspecified carotid artery; K57.30 Diverticulosis of large intestine without perforation or abscess without bleeding; N18.9 Chronic kidney disease, unspecified; N40.0 Benign prostatic hyperplasia without lower urinary tract symptoms; Z82.49 Family history of ischemic heart disease and other diseases of the circulatory system; Z86.73 Personal history of transient ischemic attack (TIA), and cerebral infarction without residual deficits; Z20.822 Contact with and (suspected) exposure to COVID-19
CPT/HCPCS: 36415; 71045; 74176; 80048; 80053; 80061; 81001; 82962; 83605; 83690; 83735; 84484; 85025; 85520; 85730; 87086; 87426; 93005; 93306; 93458; 94640; 96361; 96374; 96375; 99152; 99153; C1769; C1894; J1644; J1815; J2250; J2405; J3010; J3490; J7030; Q9967; U0003; U0005; 99285-25; G0378; J3246; J7613